=== PATIENT | male | born 1930 | race Caucasian/White ===

== ENCOUNTER 2016-07-29 17:42 | Inpatient (IN) ==
--- NOTE | 2016-07-29 17:54 | Emergency Department Note ---
Disposition Clinical Impression: Expressive aphasia CVA (cerebral vascular accident) Qualifiers: CVA mechanism: unspecified Qualified Code(s): I63.9 - Cerebral infarction, unspecified Disposition: Admitted As Inpatient Condition: Fair Time of Disposition: 18:56 Altered Mental Status HPI - General Chief Complaint: ED Altered Mental Status Stated Complaint: AMS/ Expressive aphasia Time Seen by Provider: 07/29/16 17:48 Source: EMS Mode of arrival: EMS Limitations: altered mental status Nursing Notes Reviewed: Yes Vital Signs Reviewed: Yes - History of Present Illness HPI Narrative: Patient is an 85-year-old male who presents to [facility] ED with a chief complaint of altered mental status and inability to talk. Per EMS , patient's last known well was this morning at breakfast. We are unsure what time this was. Nursing staff had checked on him around 2 PM this afternoon but did not note any abnormalities at that time. Family came to check on him this evening and noticed right away that he was unable to talk like he normally does. States he can be confused at times but then is always able to still talk. Patient is bed bound at baseline and resides at [facility]. MD complaint: altered mental status, confusion Onset (ago): unknown Consistency of Symptoms: constant Context: change in medication (increased zoloft last week) - Related Data Home Medications Medication Instructions Recorded Confirmed Amlodipine [Amlodipine Besylate] 10 mg PO DAILY 03/31/15 07/29/16 Carbidopa/Levodopa 25/100 [Sinemet] 1 each PO BID 03/31/15 07/29/16 Cholecalciferol (Vitamin D3) 1,000 unit PO BID 03/31/15 07/29/16 [Vitamin D] Finasteride [Proscar] 5 mg PO DAILY 03/31/15 07/29/16 Lactulose 20 gm PO QAM 03/31/15 07/29/16 Melatonin [Melatin] 3 mg PO HS 03/31/15 07/29/16 Memantine HCl [Namenda Xr] 7 mg PO DAILY 03/31/15 07/29/16 Metoprolol XL (24 HR) Succ [Toprol 50 mg PO DAILY 03/31/15 07/29/16 XL] Omeprazole [PriLOSEC] 20 mg PO DAILY 03/31/15 07/29/16 Probenecid [Benemid] 500 mg PO BID 03/31/15 07/29/16 Sertraline [Zoloft] 150 mg PO DAILY 03/31/15 07/29/16 Vitamin B Complex [B Complex] 1 each PO DAILY 03/31/15 07/29/16 Acetaminophen [Tylenol] 500 mg PO TID 07/29/16 07/29/16 Acetaminophen [Tylenol] 650 mg PO Q8H PRN 07/29/16 07/29/16 Bisacodyl [Dulcolax] 10 mg RC DAILY PRN 07/29/16 07/29/16 Furosemide [Lasix] 20 mg PO DAILY 07/29/16 07/29/16 LORazepam [Ativan] 1 mg PO BID PRN 07/29/16 07/29/16 Magnesium Hydroxide [Milk of 400 mg PO DAILY PRN 07/29/16 07/29/16 Magnesia] Nitroglycerin [Nitrostat] 0.4 mg SL Q5M PRN 07/29/16 07/29/16 Potassium Chloride [K-Tab ER] 20 meq PO DAILY 07/29/16 07/29/16 Sennosides [Senna] 8.6 mg PO BID 07/29/16 07/29/16 Allergies Allergy/AdvReac Type Severity Reaction Status Date / Time allopurinol Allergy See Verified 03/31/15 14:23 Comments Limitations: ROS unobtainable due to patients medical condition Past Medical History - Past Medical History Source: old records reviewed, obtained from family Medical history: Reports: dementia, hyperlipidemia, hypertension, renal disease Psychiatric history: Reports: depression - Social History Smoking Status: Unknown if ever smoked Smokeless Tobacco Status: No Alcohol use: Reports: none Drug use: Reports: none Physical Exam - General Limitations: altered mental status General appearance: alert - Head Head exam: atraumatic, normocephalic, normal inspection - Eye Eye exam: Present: normal appearance, PERRL, EOMI - ENT ENT exam: mucous membranes dry - Neck Neck exam: Present: normal inspection, full ROM, trachea midline - Chest Chest inspection: Present: normal inspection, symmetric chest wall rise - Cardiovascular Cardiovascular exam: Present: regular rate, normal rhythm, normal heart sounds - Abdominal Exam Abdominal exam: Present: soft, Non-Tender. Absent: distention, guarding, rebound, rigidity - Extremities Exam Extremities exam: Present: normal inspection, full ROM. Absent: tenderness, pedal edema - Neurological Exam Neurological exam: Present: alert. Absent: oriented X3 - Expanded Neurological Exam Speech: Present: expressive aphasia Cranial nerves: EOM function (II, III, IV, ): Normal, facial palsy (VII): Normal Motor strength - LUE: 4/5 Motor strength - RUE: 4/5 Motor strength - LLE: 0/5 Motor strength - RLE: 0/5 Coma Scale Eye Opening: Spontaneous Coma Scale Motor Response: Obeys Commands Coma Scale Verbal Response: Incomprehensible Coma Scale Total: 12 - Psychiatric Psychiatric exam: Present: normal affect, normal mood - Skin Skin exam: Present: warm, dry, intact, normal color Course Course Narrative: Patient seen and examined. Difficulty with speech today. At baseline, patient is nonambulatory. Patient able to follow some commands such as squeezing and releasing his hand as well as opening and closing his eyes. However he does not follow any other commands. He is trying to talk but is unable to make any comprehensible words. NIH score of 13. Unknown last well though it is thought to be this morning. Stroke alert was called. Critical care workup initiated. Pt is DNR CCA - Reevaluation(s) Reevaluation #1: Patient is somewhat hypertensive. However did improve from systolic to 10 down to 190. We will hold off on IV antihypertensive medication at this time. CT head negative for any acute abnormalities. I spoke with [facility] neurologists Dr. Ingram who feels patient is not a candidate for TPA. He will need admission however for stroke workup. We will page hospitalist for admission. Time: 18:27 Reevaluation #2: I spoke with hospitalist Dorinda Marc NP who has accepted patient for admission. Time: 18:52 Vital Signs Temperature 97.5 F L 07/29/16 17:46 Pulse Rate 61 07/29/16 17:46 Respiratory Rate 14 07/29/16 17:46 Blood Pressure 210/114 07/29/16 17:46 O2 Sat by Pulse Oximetry 96 07/29/16 17:46 Temperature 96.0 F L 07/29/16 23:29 Pulse Rate 60 07/29/16 23:29 Respiratory Rate 17 07/29/16 23:29 Blood Pressure 181/94 07/29/16 23:29 O2 Sat by Pulse Oximetry 93 07/29/16 23:29 Oxygen Delivery Oxygen Delivery Room Air Altered Mental Status - Medical Records Medical records reviewed: Yes I reviewed the patient's medical records. - Lab Data Lab results reviewed: Yes I reviewed the patient's lab results. Result diagrams: 07/29/16 18:04 07/29/16 18:04 Lab Results 07/29/16 07/29/16 07/29/16 Range/Units 17:47 18:04 18:04 WBC 7.6 (4.3-11.1) K/mcL RBC 5.15 (4.19-5.50) M/mcL Hgb 15.0 (12.9-16.9) g/dL Hct 46.2 (37.5-50.1) % MCV 89.7 (83.0-100.0) fL MCH 29.1 (28.0-33.3) pg MCHC 32.5 (31.6-35.5) g/dL RDW 15.3 H (11.5-14.5) % Plt Count 226 (140-400) K/mcL MPV 9.8 (9.4-12.4) fL Immature Gran % 0.3 (0-4) % Seg Neutrophils % 63.5 % Lymphocytes % 21.7 % Monocytes % 10.5 % Eosinophils % 3.5 % Basophils % 0.5 % Neutrophils # 4.8 (1.6-8.9) K/mcL Lymphocytes # 1.7 (0.6-4.6) K/mcL Monocytes # 0.8 (0.0-1.3) K/mcL Eosinophils # 0.3 (0.0-0.6) K/mcL Basophils # 0.0 (0.0-0.2) K/mcL PT 11.6 (9.4-12.1) Seconds INR 1.1 APTT 30.5 (26.0-36.0) Seconds Sodium (136-145) mEq/L Potassium (3.5-4.5) mEq/L Chloride (98-109) mEq/L Carbon Dioxide (19-29) mEq/L BUN (8-26) mg/dL Creatinine (0.72-1.25) mg/dL Est GFR ( Amer) (> 60) Est GFR (Non-Af Amer) (> 60) BUN/Creatinine Ratio (6-26) Glucose (70-99) mg/dL POC Glucose 89 (58-89) Calculated Osmolality (280-300) Calcium (8.6-10.8) mg/dL Troponin I (0-0.03) ng/mL 07/29/16 07/29/16 Range/Units 18:04 18:04 WBC (4.3-11.1) K/mcL RBC (4.19-5.50) M/mcL Hgb (12.9-16.9) g/dL Hct (37.5-50.1) % MCV (83.0-100.0) fL MCH (28.0-33.3) pg MCHC (31.6-35.5) g/dL RDW (11.5-14.5) % Plt Count (140-400) K/mcL MPV (9.4-12.4) fL Immature Gran % (0-4) % Seg Neutrophils % % Lymphocytes % % Monocytes % % Eosinophils % % Basophils % % Neutrophils # (1.6-8.9) K/mcL Lymphocytes # (0.6-4.6) K/mcL Monocytes # (0.0-1.3) K/mcL Eosinophils # (0.0-0.6) K/mcL Basophils # (0.0-0.2) K/mcL PT (9.4-12.1) Seconds INR APTT (26.0-36.0) Seconds Sodium 143 (136-145) mEq/L Potassium 3.7 (3.5-4.5) mEq/L Chloride 105 (98-109) mEq/L Carbon Dioxide 26 (19-29) mEq/L BUN 17 (8-26) mg/dL Creatinine 1.65 H (0.72-1.25) mg/dL Est GFR ( Amer) 48 L (> 60) Est GFR (Non-Af Amer) 40 L (> 60) BUN/Creatinine Ratio 10 (6-26) Glucose 102 H (70-99) mg/dL POC Glucose (58-89) Calculated Osmolality 298 (280-300) Calcium 10.2 (8.6-10.8) mg/dL Troponin I 0.03 (0-0.03) ng/mL - Radiology Data Radiology results reviewed: Yes I reviewed the patient's radiology results. Head CT 07/29/16 17:48 IMPRESSION: No evidence of intracranial hemorrhage or mass effect. Atrophy and severe white matter changes consistent chronic small vessel ischemic disease. This limits evaluation for subtle acute infarct. If clinically indicated, MRI may be helpful for further evaluation. Findings were discussed with Dr. Almeida at 6:17 pm on 07/29/2016. D/ / Barb Ellis MD / Barb Ellis MD Interpreting Provider: Barb Ellis MD Chest X-Ray 07/29/16 18:01 IMPRESSION: No acute process. D/ / Mac Shepherd MD / Mac Shepherd MD Interpreting Provider: Mac Shepherd MD - EKG Data EKG attestation: Yes I reviewed and interpreted this EKG. EKG results narrative: EKG done at 1748 shows ventricular paced rhythm with a rate of 67 bpm. No acute abnormalities. Attestation Statement - Attestation Attestation: I, Nj Solorzano, examined this patient and my medical decision-making was reviewed with the LEDGE MAN/PA/Advanced Practice Nurse/Resident Physician. I agree with the documented findings, disposition and treatment plan as described except to the extent set forth below. 85-year-old male brought in by EMS with concerns of possible CVA. Family states the patient was last seen normal at breakfast this morning. Patient is now unable to have a conversation and has difficulty following simple commands which is a significant change from his baseline. Time of onset is unclear however nursing staff at nursing facility states a nurse was in his room around 2 PM and did not notice obvious deficits. Stroke protocol was initiated. CT of the head was negative. Patient was evaluated by [facility] neurologists there was not a candidate for TPA. Patient will be admitted to the hospital for further care and evaluation.
[2016-07-29] MEDS ORDERED: *HR* Labetalol 20 MG/4 ML SYRINGE IVP ONE (18:02)
[2016-07-29 18:09] LABS: Basophils % 0.5 %; Eosinophils # 0.3 K/mcL (0.0-0.6); Eosinophils % 3.5 %; Hematocrit 46.2 % (37.5-50.1); Immature Granulocytes % 0.3 % (0-4); Lymphocytes # 1.7 K/mcL (0.6-4.6); Lymphocytes % 21.7 %; Mean Corpuscular HGB Conc 32.5 g/dL (31.6-35.5); Mean Corpuscular Hemoglobin 29.1 pg (28.0-33.3); Mean Corpuscular Volume 89.7 fL (83.0-100.0); Mean Platelet Volume 9.8 fL (9.4-12.4); Monocytes # 0.8 K/mcL (0.0-1.3); Monocytes % 10.5 %; Neutrophils # 4.8 K/mcL (1.6-8.9); Platelet Count 226 K/mcL (140-400); Red Blood Count 5.15 M/mcL (4.19-5.50); Red Cell Distribution Width 15.3 % (11.5-14.5); Segmented Neutrophils % 63.5 %
[2016-07-29 18:16] LABS: INR 1.1; Prothrombin Time 11.6 Seconds (9.4-12.1)
[2016-07-29 18:18] LABS: Activated Partial Thrombo Time 30.5 Seconds (26.0-36.0)
[2016-07-29 18:20] LABS: Calcium 10.2 mg/dL (8.6-10.8); Potassium 3.7 mEq/L (3.5-4.5)
[2016-07-29] MEDS ORDERED: Naloxone 0.4 MG/ML INJ IVP PRN (21:51)
--- NOTE | 2016-07-29 23:07 | Internal Med History&Physical ---
Date of Encounter: 07/29/16 Time of Encounter: 22:57 Assessment and Plan (1) Expressive aphasia Current visit: Yes Status: Acute 1 patient presented with expressive aphasia-CT of head was negative -patient did not pass bedside swallowing evaluation. We will consult speech therapy 2 patient's nothing by mouth 3 aspiration precautions (2) CVA (cerebral vascular accident) Current visit: Yes Status: Acute 1 patient presented with onset of expressive aphasia. Last known well approximately 8 AM this morning, [facility] neurology consult and patient outside the window of TPA. CT of head negative for any intracranial abnormalities. Unable to perform MRI due to pacemaker. Recheck CAT scan after 24 hours 2 consult neurology 3 patient nothing by mouth with aspiration precautions consult speech therapy 4 consult PTOT 5 obtain cardiac echo 6 obtain carotid Dopplers 7 lipid profile 8 aspirin rectal Qualifiers: CVA mechanism: unspecified Qualified Code(s): I63.9 - Cerebral infarction, unspecified (3) CKD (chronic kidney disease) stage 3, GFR 30-59 ml/min Current visit: Yes Status: Acute 1 creatinine 1.65 baseline is 1.3-1.4. We will continue to monitor creatinine 2 avoid nephrotoxins 3 Gentle IV hydration 4 monitor intake and output daily weights (4) HTN (hypertension) Current visit: Yes Status: Acute 1 patient presented hypertensive emergency with systolic blood pressure 200 100. Slowly resolved. Presently systolic is 160. Goal is to maintain systolic around 160- 170 Qualifiers: Hypertension type: essential hypertension Qualified Code(s): I10 - Essential (primary) hypertension (5) Parkinson disease Current visit: Yes Status: Acute 1 presently patient is nothing by mouth we will resume medications once cleared by speech therapy. We will hold home medications for now (6) DVT prophylaxis Current visit: Yes Status: Acute Heparin Internal Medicine - H&P: HPI Chief complaint: AMS Admitted From: Emergency Dept Plans for Post Hospital Care: Transfer Care Home Facility History of present illness: Mr. Albarran is a 85 year old male past history of CK D 3 mentioned hypertension and CAD with stent Parkinson. Patient to obtain medical records and nursing staff due to patient's mental state. According to nursing staff patient resides at [facility] approximately 1 month ago he was residing in assisted living. However due to increasing dementia she is transferred to long-term area. According to nursing staff at the facility patient's last name as well as approximately 8 AM at breakfast. Nursing staff checked on him around 2 PM this afternoon but did not notice any abnormalities at that time. Family came in to check on him in the evening and noticed that he was unable to talk which was unusual for him. Patient notably is confused at times however he was able to always speak. Patient was transferred to the ER for further workup evaluation. ER records patient was attempted to talk but was unable to make comprehensible words NIH was 13. Patient was hypertensive upon presentation with a systolic of 210/[address] of head was negative for any acute abnormalities the did speak with with you neurologist who feels patient is not candidate for TPA however will need admission for further stroke workup. Patient was given rectal aspirin. ER document indicates patient is a DNR CCA. Upon assessment patient is a phasic is able to grasp hands equally, patient pulled with feet equally, however he does close his eyes and looks away when asked to perform any other commands. He is hemodynamically stable. I reviewed this case with who agrees with plan. Past Med Surg Social Fam HX - Past Medical History Medical history: dementia, hyperlipidemia, hypertension, renal disease Psychiatric history: depression - Social History Smoking Status: Unknown if ever smoked Smokeless Tobacco Status: No Alcohol use: none Drug use: none Internal Medicine - H&P: Meds Amlodipine [Amlodipine Besylate] 10 mg PO DAILY 03/31/15 [History] Carbidopa/Levodopa 25/100 [Sinemet] 1 each PO BID 03/31/15 [History] Cholecalciferol (Vitamin D3) [Vitamin D] 1,000 unit PO BID 03/31/15 [History] Finasteride [Proscar] 5 mg PO DAILY 03/31/15 [History] Lactulose 20 gm PO QAM 03/31/15 [History] Melatonin [Melatin] 3 mg PO HS 03/31/15 [History] Memantine HCl [Namenda Xr] 7 mg PO DAILY 03/31/15 [History] Metoprolol XL (24 HR) Succ [Toprol XL] 50 mg PO DAILY 03/31/15 [History] Omeprazole [PriLOSEC] 20 mg PO DAILY 03/31/15 [History] Probenecid [Benemid] 500 mg PO BID 03/31/15 [History] Sertraline [Zoloft] 150 mg PO DAILY 03/31/15 [History] Vitamin B Complex [B Complex] 1 each PO DAILY 03/31/15 [History] Acetaminophen [Tylenol] 500 mg PO TID 07/29/16 [History] Acetaminophen [Tylenol] 650 mg PO Q8H PRN 07/29/16 [History] Bisacodyl [Dulcolax] 10 mg RC DAILY PRN 07/29/16 [History] Furosemide [Lasix] 20 mg PO DAILY 07/29/16 [History] LORazepam [Ativan] 1 mg PO BID PRN 07/29/16 [History] Magnesium Hydroxide [Milk of Magnesia] 400 mg PO DAILY PRN 07/29/16 [History] Nitroglycerin [Nitrostat] 0.4 mg SL Q5M PRN 07/29/16 [History] Potassium Chloride [K-Tab ER] 20 meq PO DAILY 07/29/16 [History] Sennosides [Senna] 8.6 mg PO BID 07/29/16 [History] Allergies allopurinol Allergy (Verified 03/31/15 14:23) See Comments ROS unobtainable: due to mental status All Systems PM: A 10-system review of systems was performed and is negative for pertinent findings except as documented above in the HPI. - Constitutional Vitals: Temp Pulse Resp BP Pulse Ox 96.7 F L 62 17 162/87 95 07/29/16 20:24 07/29/16 20:24 07/29/16 20:24 07/29/16 20:24 07/29/16 20:24 General appearance: Present: A&O X 0 - Head Head exam: Present: atraumatic, normocephalic - Eye Eye exam: Present: EOMI, PERRL, conjuntiva pink, sclera anicteric Pupils: Present: PERRL - Respiratory Respiratory exam: Present: CTAB. Absent: accessory muscle use, rales, rhonchi, wheezes - Cardiovascular Cardiovascular exam: Present: RRR, +S1, +S2. Absent: diastolic murmur, gallop, rubs, systolic murmur - GI/Abdominal GI/Abdominal exam: Present: normal bowel sounds, soft, no peritoneal signs. Absent: distended, tenderness - Extremities Exam Extremities exam: Present: warm, radial pulses palpable and symetrical. Absent : calf tenderness, cyanotic, pedal edema - Neurological Exam Neurological exam: Present: alert, speech deficit. Absent: pronater drift, facial droop - Expanded Neurological Exam Speech: Present: expressive aphasia Coma Scale Eye Opening: Spontaneous Coma Scale Motor Response: Obeys Commands Coma Scale Verbal Response: None Coma Scale Total: 11 - Skin Skin exam: Present: dry, intact Internal Med - H&P Results - Labs CBC & Chem 7: 07/29/16 18:04 07/29/16 18:04 - Diagnostic Studies Other Images Additional comments: Head CT 07/29/16 17:48 IMPRESSION: No evidence of intracranial hemorrhage or mass effect. Atrophy and severe white matter changes consistent chronic small vessel ischemic disease. This limits evaluation for subtle acute infarct. If clinically indicated, MRI may be helpful for further evaluation. Findings were discussed with Dr. Almeida at 6:17 pm on 07/29/2016. D/ / Barb Ellis MD / Barb Ellis MD Interpreting Provider: Barb Ellis MD Chest X-Ray 07/29/16 18:01 IMPRESSION: No acute process. D/ / Mac Shepherd MD / Mac Shepherd MD Interpreting Provider: Mac Shepherd MD
[2016-07-29] MEDS ORDERED: 0.9 % Sodium Chloride 1,000 ML IVC SCH (23:30)
[2016-07-30 02:12] LABS: Basophils # 0.1 K/mcL (0.0-0.2); Basophils % 0.5 %; Eosinophils # 0.2 K/mcL (0.0-0.6); Eosinophils % 2.3 %; Hematocrit 40.8 % (37.5-50.1); Hemoglobin 13.7 g/dL (12.9-16.9); Immature Granulocytes % 0.4 % (0-4); Lymphocytes # 1.7 K/mcL (0.6-4.6); Mean Corpuscular HGB Conc 33.6 g/dL (31.6-35.5); Mean Corpuscular Hemoglobin 29.5 pg (28.0-33.3); Mean Corpuscular Volume 87.9 fL (83.0-100.0); Mean Platelet Volume 10.6 fL (9.4-12.4); Monocytes % 10.4 %; Neutrophils # 6.4 K/mcL (1.6-8.9); Platelet Count 177 K/mcL (140-400); Red Blood Count 4.64 M/mcL (4.19-5.50); Red Cell Distribution Width 15.1 % (11.5-14.5); Segmented Neutrophils % 68.4 %
[2016-07-30 02:26] LABS: Calcium 9.3 mg/dL (8.6-10.8); Chol/HDL Ratio 3.9 (0-4.9); Potassium 3.7 mEq/L (3.5-4.5)
[2016-07-30] MEDS ORDERED: *HR* LORazepam 1 MG TABLET PO PRN (08:35)
[2016-07-30] MEDS ORDERED: MOM Conc 10 ML UD.LIQ PO PRN (08:35)
--- NOTE | 2016-07-30 08:44 | Internal Med Progress Note ---
Date of Encounter: 07/30/16 Time of Encounter: 08:40 - Assessment and plan (1) CVA (cerebral vascular accident) Current Visit: Yes Status: Acute Assessment and plan: admitted for expressive aphasia from [place] CT Head : no new infarct or bleed. ECHO: Pending. Carotid doppler : Pending. has advanced dementia and NH resident. plan: complete the work up no major invasive procedures. likely back to [facility] Qualifiers: CVA mechanism: unspecified Qualified Code(s): I63.9 - Cerebral infarction, unspecified (2) HTN (hypertension) Current Visit: Yes Status: Acute Assessment and plan: will keep above 170 in view of new aphasia, possible infarct Unable to get MRI due to pacemaker. Qualifiers: Hypertension type: essential hypertension Qualified Code(s): I10 - Essential (primary) hypertension (3) Parkinson disease Current Visit: Yes Status: Acute Assessment and plan: resume home meds. (4) CKD (chronic kidney disease) stage 3, GFR 30-59 ml/min Current Visit: Yes Status: Acute Assessment and plan: no NSAIDs close monitoring labs in AM (5) Expressive aphasia Current Visit: Yes Status: Acute Assessment and plan: likely CVA Will repeat CT head tomorrow. (6) DVT prophylaxis Current Visit: Yes Status: Acute Assessment and plan: heparin Medical Decision Making : In spite of appropriate meds still has risk of worsening as he has advanced age and multiple comorbidities. - Subjective Interval history: seen and examined. patient is not communicating does not appeared to be in stress. examined him at ECHO room. - Constitutional Vitals: Temp Pulse Resp BP Pulse Ox 97.6 F 61 16 187/91 97 07/30/16 06:53 07/30/16 06:53 07/30/16 06:53 07/30/16 06:53 07/30/16 06:53 General appearance: Present: A&O X 0 - Head Head exam: Present: atraumatic, normocephalic - Eye Eye exam: Present: PERRL, conjuntiva pink, sclera anicteric Pupils: Present: PERRL - Neck Neck exam general surgery: Present: supple, trachea midline. Absent: lymphadenopathy - Respiratory Respiratory exam: Present: CTAB. Absent: accessory muscle use, rales, rhonchi, wheezes - Cardiovascular Cardiovascular exam: Present: RRR, +S1, +S2. Absent: diastolic murmur, gallop, rubs, systolic murmur - GI/Abdominal GI/Abdominal exam: Present: normal bowel sounds, soft, no peritoneal signs. Absent: distended, tenderness - Extremities Exam Extremities exam: Present: warm, radial pulses palpable and symetrical. Absent : calf tenderness, cyanotic, pedal edema - Neurological Exam Neurological exam: Present: CN II-XII intact, oriented X3, no focal deficits. Absent: pronater drift, facial droop, speech deficit - Skin Skin exam: Present: dry, intact Internal Medicine: Result - Labs CBC & Chem 7: 07/30/16 02:02 07/30/16 02:02 Labs: Short CBC 07/30/16 Range/Units 02:02 WBC 9.4 (4.3-11.1) K/mcL Hgb 13.7 (12.9-16.9) g/dL Hct 40.8 (37.5-50.1) % Plt Count 177 (140-400) K/mcL Neutrophils # 6.4 (1.6-8.9) K/mcL BMP 07/30/16 02:02 Sodium 143 Potassium 3.7 Chloride 108 Carbon Dioxide 24 BUN 20 Creatinine 1.42 H Glucose 105 H Calcium 9.3 Cardiac Enzymes 07/30/16 07/30/16 Range/Units 02:02 05:56 Troponin I 0.04 H* 0.04 H* (0-0.03) ng/mL - ABG Interpretation ABG results: PT/INR, D-dimer PT 11.6 Seconds (9.4-12.1) 07/29/16 18:04 Consult Discharge Plan - Plan Instructions: Parkinson's Disease (DC), Parkinson's Disease (GEN), Ischemic Stroke (DC), Ischemic Stroke (GEN), Chronic Hypertension (DC) Referrals: Michel Stevens [Primary Care Provider] -
[2016-07-30] MEDS ORDERED: Perflutren Lipid Microsphere 1.3 ML in 0.9 % Sodium Chloride 8.7 ML IVP ONE (08:50)
[2016-07-30] MEDS: *HR* Heparin 5,000 UNIT/ML VIAL SQ SCH ×2 (10:55→17:28)
[2016-07-30] MEDS ORDERED: Bisacodyl 10 MG RECTAL SUPPOSITORY RC PRN (11:00)
[2016-07-30] MEDS ORDERED: Nitroglycerin 0.4 MG TAB.SUBL SL PRN (11:03)
--- NOTE | 2016-07-30 11:26 | ECHO - Doppler Report ---
Echo with Saline and Imaging Enhancement Agent Name: Ryder Albarran Date of Study: 07/30/2016 Date: 1930 Ht: 73.0 in Medical Record#: [id number] Age: 85 Wt: 188.0 lb Gender: Male BSA: 2.1 Order #: [id number] Location: [facility] Room #: 2NE17 Reading Physician: Kennedi Phelps DO Ceramic Chemist: Ochoa Celaya RN Ordering Physician: Wendy Jackson CNP Primary Physician: Michel Stevens MD Indications: Cerebrovascular Accident Impressions: LV systolic function appears low normal with use of Definity. Moderate increase in LV wall thickness. Atypical septal motion consistent with paced rhythm. Normal right ventricular size and function. Borderline evidence for mild pulmonary hypertension. No evidence for PFO with saline contrast, although images may be suboptimal. Left Ventricular Wall Motion: Rest Echo Findings The mid inferior lateral and basal inferior lateral wilder were not visualized. All other wall segments showed normal motion. Findings: Study Quality * Technically challenging with suboptimal windows. ECG Findings * Paced rhythm. Left Ventricle * Indeterminate diastolic function. * Low normal LV systolic function when visualized with use of Definity. * Atypical septal motion consistent with paced rhythm. * Moderate increase in LV wall thickness. Aorta * Normally sized aortic root. Mitral Valve * Normal mitral valve structure. * No mitral stenosis. * No mitral regurgitation. Aortic Valve * Aortic valve not well visualized. * Discrepant Doppler findings for the presence of aortic stenosis. * Trace aortic regurgitation. Tricuspid Valve * Tricuspid valve not well visualized. * Trace tricuspid regurgitation. * Estimated RA pressure is 3 mmHg. * Estimated RVSP is 35 mmHg. * Borderline mild pulmonary hypertension. Pulmonic Valve * Pulmonic valve is not well visualized. * No pulmonic stenosis. * No pulmonic regurgitation. Pulmonary Artery * Pulmonary artery not well visualized. Right Atrium * Normal right atrial size. Left Atrium * Severely dilated left atrium. IVC * The IVC is not dilated. Pericardium * There is no pericardial effusion present. Interatrial Septum * There does not appear to be a PFO present with saline injection. However, image quality may be suboptimal for visualization. Right Ventricle * Normal right ventricular structure and function. History 07/03/2014 a Previous Echo was performed. Contrast: Agitated saline 20 ml. Definity 1.3 ml in 8.7 ml of saline 2 ml. Measurements: BP: 187/ 91 2D Normal Values IVSd: 1.40 cm 0.6 - 1.0 cm LVIDd: 4.90 cm 3.7 - 5.6 cm LVPWd: 1.40 cm 0.6 - 1.1 cm LVIDs: 3.50 cm 1.5 - 3.6 cm %FS: 28.60 cm >25 % LVOT Diam: 2.10 cm LA volume: Mitral Valve Peak E:.40 m/sec Peak A:.82 m/sec E/A Ratio:0.5 Peak E' Lat Conrado:4.58 cm/s Peak E' Med Conrado:4.19 cm/s E/E' Lat Ratio:8.6 E/E' Med Ratio:9.4 LVOT Peak Conrado:.79 m/sec Mean Conrado:.51 m/sec Peak Grad:2.00 mmHg Mean Grad:1.00 mmHg Aortic Valve Peak Conrado:2.73 m/sec Mean Conrado:1.76 m/sec Peak Grad:30.00 mmHg Mean Grad:15.00 mmHg Valve Area:1.16 cm2 Tricuspid Valve TV Regurg Peak Grad: 32.00mmHg TV Regurg Peak Conrado: 2.81m/sec Updated by Kennedi Phelps on 07/30/2016 11:12:56 AM electronically signed on 07/30/2016 11:20:08 AM with status of Final Wall Motion [place]: 1=Normal, 2=Hypokinesis, 3=Akinesis, 4=Dyskinesis, 5=Aneurysmal, 6=Hyperkinetic, X=Not Visualized (Blank)=Missing
[2016-07-30] MEDS: Finasteride 5 MG TABLET PO SCH (12:22)
[2016-07-30] MEDS: Furosemide 20 MG TABLET PO SCH (12:22)
[2016-07-30] MEDS: Aspirin Enteric Coated 81 MG Tablet PO SCH (12:22)
[2016-07-30] MEDS: Carbidopa/Levodopa 25/100 TABLET PO SCH ×2 (12:23→21:55)
[2016-07-30] MEDS: Metoprolol XL (24 HR) Succ 50 MG TAB.ER.24H PO SCH (12:23)
[2016-07-30] MEDS: amLODIPine 5 MG TABLET PO SCH (12:23)
[2016-07-30] MEDS: Sennosides 8.6 MG TABLET PO SCH ×2 (12:23→21:55)
--- NOTE | 2016-07-30 12:27 | Neurology - Consult Note ---
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 No focal deficits seen. Does have Parkinson features and history of dementia. Speech difficulty is quite obvious and major concern would be small infarct involving the speech cortex. Certainly needs MRI of brain with DW images, complete echo, carotid artery duplex. Is already on aspirin and Plavix now Continue statin therapy. Will review MRI of brain once available. Will decide whether patient needs CORRIE if embolic appearing. History of Present Illness Chief complaint: speech difficulty and inability to walk HPI: Mr. Albarran is a 85 year old male with PMH significant for dementia, CKD, pacemaker, HTN, CAD, Parkinson's disease, who developed acute of altered mental status, mainly speech difficulty and inability to walk. Does carry a diagnosis of Parkinson's disease and dementia. This morning, the patient was found to have speech difficulty, almost like receptive aphasia and answer questions incorrectly or not making any sense. Does not appear to be any significant discomforts but unable to walk. No focal weakness. is able to eat. CT of head showed no acute intracranial abnormality. Past Med Surg Social Fam HX - Past Medical History Medical history: dementia, hyperlipidemia, hypertension, renal disease Psychiatric history: depression - Past Surgical History Surgical History: AICD - Social History Smoking Status: Unknown if ever smoked Smokeless Tobacco Status: No Alcohol use: none Drug use: none Medications and Allergies Amlodipine [Amlodipine Besylate] 10 mg PO DAILY 03/31/15 [History] Carbidopa/Levodopa 25/100 [Sinemet] 1 each PO BID 03/31/15 [History] Cholecalciferol (Vitamin D3) [Vitamin D] 1,000 unit PO BID 03/31/15 [History] Finasteride [Proscar] 5 mg PO DAILY 03/31/15 [History] Lactulose 20 gm PO QAM 03/31/15 [History] Melatonin [Melatin] 3 mg PO HS 03/31/15 [History] Memantine HCl [Namenda Xr] 7 mg PO DAILY 03/31/15 [History] Metoprolol XL (24 HR) Succ [Toprol XL] 50 mg PO DAILY 03/31/15 [History] Omeprazole [PriLOSEC] 20 mg PO DAILY 03/31/15 [History] Probenecid [Benemid] 500 mg PO BID 03/31/15 [History] Sertraline [Zoloft] 150 mg PO DAILY 03/31/15 [History] Vitamin B Complex [B Complex] 1 each PO DAILY 03/31/15 [History] Acetaminophen [Tylenol] 500 mg PO TID 07/29/16 [History] Acetaminophen [Tylenol] 650 mg PO Q8H PRN 07/29/16 [History] Bisacodyl [Dulcolax] 10 mg RC DAILY PRN 07/29/16 [History] Furosemide [Lasix] 20 mg PO DAILY 07/29/16 [History] LORazepam [Ativan] 1 mg PO BID PRN 07/29/16 [History] Magnesium Hydroxide [Milk of Magnesia] 400 mg PO DAILY PRN 07/29/16 [History] Nitroglycerin [Nitrostat] 0.4 mg SL Q5M PRN 07/29/16 [History] Potassium Chloride [K-Tab ER] 20 meq PO DAILY 07/29/16 [History] Sennosides [Senna] 8.6 mg PO BID 07/29/16 [History] Allergies allopurinol Allergy (Verified 03/31/15 14:23) See Comments All Systems: A 10-system review of systems was performed and is negative for pertinent findings except as documented above in the HPI. Physical Examination - Vital Signs Vital Signs: Initial Vital Signs Temp Pulse Resp BP Pulse Ox 97.5 F L 61 14 210/114 96 07/29/16 17:46 07/29/16 17:46 07/29/16 17:46 07/29/16 17:46 07/29/16 17:46 - Constitutional General appearance: comfortable - Neurologic Sensorimotor examination: other (Unable to assess due to aphasia) Detailed motor examination: grossly full strength in all extremities (No focal weakness seen. Patient does not follow commands. Able to hold legs up in the air when let drop) Motor examination - right side: 4/5: hip flexors, 5/5: deltoids, biceps, triceps , wrist flexion, wrist extension, tax compliance officer Motor examination - left side: 4/5: quadriceps, 5/5: deltoids, biceps, triceps, wrist flexion, wrist extension, hip flexors, tax compliance officer Detailed sensory examination: other (Grossly intact) Posture: other (None) Reflex and gait examination: other (Patient has muscle rigidity especially at the arms bilaterally. No tremors seen.) Mental Status Examination: awake, alert, opens eyes to voice, makes eye contact , receptive aphasia, demented, impaired cognition Cranial nerve examination: PERRL, EOMI (appears full but difficul to assess), visual sotomayor intact (unable to assess), corneal reflexes brisk symmetrically, no facial asymmetry is present, hearing is intact symmetrically (unable to assess) Results - Laboratory Findings CBC and BMP: 07/30/16 02:02 07/30/16 02:02 Abnormal lab findings: Abnormal lab results RDW 15.1 % (11.5-14.5) H 07/30/16 02:02 Creatinine 1.42 mg/dL (0.72-1.25) H 07/30/16 02:02 Est GFR ( Amer) 57 (> 60) L 07/30/16 02:02 Est GFR (Non-Af Amer) 47 (> 60) L 07/30/16 02:02 Glucose 105 mg/dL (70-99) H 07/30/16 02:02 Troponin I 0.04 ng/mL (0-0.03) H* 07/30/16 05:56 Triglycerides 162 mg/dL (< 150) H 07/30/16 02:02 VLDL Cholesterol, Calc 32 mg/dL (< 31) H 07/30/16 02:02 Consult Discharge Plan - Plan Instructions: Parkinson's Disease (DC), Parkinson's Disease (GEN), Ischemic Stroke (DC), Ischemic Stroke (GEN), Chronic Hypertension (DC) Referrals: Michel Stevens [Primary Care Provider] -
[2016-07-30] MEDS: NAMENDA 7 MG PO SCH (12:34)
--- NOTE | 2016-07-30 17:53 | Electrocardiograph Report ---
[place] [id number] Test Date: 2016-07-29 Pat Name: Ryder Albarran Department: 103 Room: 2NE17 Gender: M Gelatin Powder Mixer: : 1930 Requested By: Wendy Jackson Order Number: [id number] Reading MD: Davi Escoto MD Measurements Intervals [place] Rate: 67 P: 23 OR: 191 QRS: 264 QRSD: 165 T: 90 QT: 449 QTc: 464 Interpretive Statements ELECTRONIC VENTRICULAR PACEMAKER Electronically Signed On 07-30-2016 17:51:39 EDT by Davi Escoto MD
[2016-07-30] MEDS: Melatonin 3 MG TABLET PO SCH (21:55)
[2016-07-31 03:27] LABS: Bilirubin,Urine Negative (Negative); Blood,Urine Negative (Negative); Clarity,Urine Clear (Clear); Color,Urine Yellow (Yellow); Glucose,Urine (UA) Normal (Normal); Ketones,Urine Negative (Negative); Leukocyte Esterase,Urine Negative (Negative); Nitrite,Urine Negative (Negative); Protein,Urine >=300 mg/dL (Neg-Trace); Specific Gravity,Urine 1.028 (1.010-1.025); Urobilinogen,Urine Normal (Normal)
[2016-07-31 03:29] LABS: Bacteria,Urine None Seen per hpf (None-Few); Hyaline Casts,Urine None Seen per lpf (None-Few); Squamous Epithelial Cell,Urine Many per lpf (None-Few); WBC,Urine 0-3 per hpf (0-3)
[2016-07-31] MEDS: *HR* Heparin 5,000 UNIT/ML VIAL SQ SCH ×2 (05:24→17:37)
--- NOTE | 2016-07-31 10:42 | Neurology Progress Note ---
Date of Encounter: 07/31/16 Time of Encounter: 10:39 Assessment and Plan (1) Expressive aphasia Current Visit: Yes Status: Acute No change in clinical status from yesterday regarding expressive aphasia, but he is following some commands appropriately Unfortunately he cannot get an MRI due to pacemaker, so we will re-evaluate with another head CT wo contrast Echo showed low EF with definity and carotid demonstrated bilateral non- stenotic plaque Continue medical management with ASA and Statin Holding off on CORRIE for now Subjective Principal diagnosis: aphasia Interval history: Pt seen and examined. He is unable to answer questions due to his persistent aphasia but he is able to follow commands and nods so simple yes/no questions. There is no family at bedside and nurse is unavailable at this moment. Objective - Constitutional Vitals: Temp Pulse Resp BP Pulse Ox 97.7 F 60 18 179/96 96 07/31/16 07:47 07/31/16 07:47 07/31/16 07:47 07/31/16 07:47 07/31/16 07:47 General appearance: Present: cooperative (but unable to verbalize) - Head Head exam: Present: atraumatic, normocephalic - Eye Eye exam: Present: PERRL, conjuntiva pink, sclera anicteric - Extremities Exam Extremities exam: Present: warm, radial pulses palpable and symetrical. Absent : calf tenderness, cyanotic, pedal edema - Neurological Exam Sensorimotor examination: Present: other (Unable to assess due to aphasia) Motor Examination: Present: other (unable to assess motor strength as patient did not follow commands to move extremities) Motor examination - right side: 5/5: hall supervisor Motor examination - left side: 5/5: hall supervisor Sensation intact: Present: other (Grossly intact) Posture: Present: other (None) Reflex and gait examination: other (Patient has muscle rigidity especially at the arms bilaterally. No tremors seen.) Mental Status Examination: Present: awake, alert, follows commands appropriately (does squeeze fingers and wiggle toes when asked), opens eyes to voice, makes eye contact, answers questions by nodding yes or no, expressive aphasia, impaired cognition Cranial nerve examination: Present: PERRL, visual sotomayor intact (unable to assess), corneal reflexes brisk symmetrically, no facial asymmetry is present, hearing is intact symmetrically (unable to assess) Results - Laboratory Findings CBC and BMP: 07/30/16 02:02 07/30/16 02:02 Abnormal lab findings: Abnormal lab results RDW 15.1 % (11.5-14.5) H 07/30/16 02:02 Creatinine 1.42 mg/dL (0.72-1.25) H 07/30/16 02:02 Est GFR ( Amer) 57 (> 60) L 07/30/16 02:02 Est GFR (Non-Af Amer) 47 (> 60) L 07/30/16 02:02 Glucose 105 mg/dL (70-99) H 07/30/16 02:02 POC Glucose 129 (58-89) H 07/30/16 20:35 Troponin I 0.04 ng/mL (0-0.03) H* 07/30/16 05:56 Triglycerides 162 mg/dL (< 150) H 07/30/16 02:02 VLDL Cholesterol, Calc 32 mg/dL (< 31) H 07/30/16 02:02 Ur Specific [place] 1.028 (1.010-1.025) H 07/31/16 03:00 Urine Protein >=300 mg/dL (Neg-Trace) H 07/31/16 03:00 Urine Microscopic RBC 5-15 per hpf (0-3) H 07/31/16 03:00 Ur Squamous Epith Cells Many per lpf (None-Few) H 07/31/16 03:00 Consult Discharge Plan - Plan Instructions: Parkinson's Disease (DC), Parkinson's Disease (GEN), Ischemic Stroke (DC), Ischemic Stroke (GEN), Chronic Hypertension (DC) Referrals: Michel Stevens [Primary Care Provider] -
[2016-07-31] MEDS: Sennosides 8.6 MG TABLET PO SCH ×2 (10:52→21:35)
[2016-07-31] MEDS: Finasteride 5 MG TABLET PO SCH (10:52)
[2016-07-31] MEDS: Furosemide 20 MG TABLET PO SCH (10:52)
[2016-07-31] MEDS: Metoprolol XL (24 HR) Succ 50 MG TAB.ER.24H PO SCH (10:52)
[2016-07-31] MEDS: Aspirin Enteric Coated 81 MG Tablet PO SCH (10:53)
[2016-07-31] MEDS: amLODIPine 5 MG TABLET PO SCH (10:53)
[2016-07-31] MEDS: Carbidopa/Levodopa 25/100 TABLET PO SCH ×2 (10:58→21:35)
[2016-07-31] MEDS: NAMENDA 7 MG PO SCH (11:02)
--- NOTE | 2016-07-31 11:55 | Carotid Imaging Report ---
Carotid Duplex Patient Name:Ryder Albarran Gene Order Number:[id number] Procedure Date:07/30/2016 Date:1930Age:85 yrs Gender:Male Rt.BP:187 / 91 mmHgHeart Rate: Location:[facility] Room #: 2NE17 Typing Bookkeeper:Ochoa Celaya RN Referring MD:Wendy Jackson TYPING BOOKKEEPER foreign policy officer:Michel Stevens MD Reading MD:Cliff Jackson MD , FACS Primary Indications:Stroke Symptoms Risk Factors Yes/No Hypertension Unknown Diabetes Unknown Hypercholesterolemia Unknown Smoking Current Unknown Hx of TIA Unknown Hx of CVA Unknown Anticoagulants Unknown Hx of CAD/PTCA Unknown Previous Vascular Surgery Unknown Impressions: Findings: Bilateral carotid system has nonstenotic plaque. Recommendations: Test completed on 07/30/2016 at 9:45:00 am. Findings Carotid Duplex: Right: The right proximal common carotid artery has a PSV of 41 cm/s and a EDV of 9 cm/s. The right mid common carotid artery has a PSV of 49 cm/s and a EDV of 10 cm/s. The right distal common carotid artery has a PSV of 52 cm/s and a EDV of 12 cm/s. There is nonstenotic plaque in the right bifurcation with a PSV of 38 cm/s and a EDV of 8 cm/s. There is smooth homogeneous plaque. There is nonstenotic plaque in the right proximal internal carotid artery with a PSV of 49 cm/s and a EDV of 11 cm/s. There is smooth homogeneous plaque. The right mid internal carotid artery has a PSV of 43 cm/s and a EDV of 11 cm/s. The right distal internal carotid artery has a PSV of 43 cm/s and a EDV of 7 cm/s. The right eca has a PSV of 107 cm/s and a EDV of 11 cm/s. The right vertebral artery has a PSV of 39 cm/s and a EDV of 9 cm/s. Left: The left proximal common carotid artery has a PSV of 58 cm/s and a EDV of 8 cm/s. The left mid common carotid artery has a PSV of 48 cm/s and a EDV of 11 cm/s. The left distal common carotid artery has a PSV of 51 cm/s and a EDV of 9 cm/s. There is nonstenotic plaque in the left bifurcation with a PSV of 40 cm/s and a EDV of 8 cm/s. There is smooth homogeneous plaque. The left proximal internal carotid artery has a PSV of 27 cm/s and a EDV of 6 cm/s. The left mid internal carotid artery has a PSV of 66 cm/s and a EDV of 12 cm/s. The left distal internal carotid artery has a PSV of 53 cm/s and a EDV of 11 cm/s. The left eca has a PSV of 78 cm/s and a EDV of 9 cm/s. The left vertebral artery has a PSV of 33 cm/s and a EDV of 6 cm/s. Prior Study: No significant change compared to prior study dated: 12/03/2013. Carotid Results Right PSV EDV Assessment Proximal CCA 41 9 Normal Mid CCA 49 10 Normal Distal CCA 52 12 Normal Bifurcation 38 8 Non Stenotic Plaque Proximal ICA 49 11 Non Stenotic Plaque Mid ICA 43 11 Normal Distal ICA 43 7 Normal ECA 107 11 Normal Vertebral Artery 39 9 Normal Left PSV EDV Assessment Proximal CCA 58 8 Normal Mid CCA 48 11 Normal Distal CCA 51 9 Normal Bifurcation 40 8 Non Stenotic Plaque Proximal ICA 27 6 Normal Mid ICA 66 12 Normal Distal ICA 53 11 Normal ECA 78 9 Normal Vertebral Artery 33 6 Normal Ratio's Right ICA/CCA Ratio: 1.00 ICA/CCA Values: 49/49 Left ICA/CCA Ratio: 1.38 ICA/CCA Values: 66/48 Updated by Cliff Jackson MD, FACS on 07/31/2016 11:47:56 AM Cliff Jackson MD electronically signed on 07/31/2016 11:48:42 AM with status of Final
[2016-07-31] MEDS ORDERED: MOM Conc 10 ML UD.LIQ PO PRN (12:15)
--- NOTE | 2016-07-31 14:33 | Internal Med Progress Note ---
Date of Encounter: 07/31/16 Time of Encounter: 14:31 - Assessment and plan (1) CVA (cerebral vascular accident) Current Visit: Yes Status: Acute Assessment and plan: admitted for expressive aphasia from [place] CT Head : no new infarct or bleed. ECHO: Pending. Carotid doppler : Pending. has advanced dementia and [place] resident. plan: complete the work up no major invasive procedures. likely back to [place] 07/31/2016. Neurological on the board. We will follow the recommendations. Qualifiers: CVA mechanism: unspecified Qualified Code(s): I63.9 - Cerebral infarction, unspecified (2) HTN (hypertension) Current Visit: Yes Status: Acute Assessment and plan: will keep above 170 in view of new aphasia, possible infarct Unable to get MRI due to pacemaker. Qualifiers: Hypertension type: essential hypertension Qualified Code(s): I10 - Essential (primary) hypertension (3) Parkinson disease Current Visit: Yes Status: Acute Assessment and plan: resume home meds. (4) CKD (chronic kidney disease) stage 3, GFR 30-59 ml/min Current Visit: Yes Status: Acute Assessment and plan: no NSAIDs close monitoring labs in AM (5) Expressive aphasia Current Visit: Yes Status: Acute Assessment and plan: likely CVA Will repeat CT head tomorrow. (6) DVT prophylaxis Current Visit: Yes Status: Acute Assessment and plan: heparin Medical Decision Making : In spite of appropriate meds still has risk of worsening as he has advanced age and multiple comorbidities. - Subjective Interval history: seen and examined. patient is not communicating does not appeared to be in stress. examined him at ECHO room. 07/31/2016. Patient seen and examined. We are unable to speak any words. No family at bedside. Noted that there is a orange colored urine in the urine bag. We will keep a close eye. if bleeding gets worse then we will get urology for further evaluation. - Constitutional Vitals: Temp Pulse Resp BP Pulse Ox 97.7 F 60 20 184/94 94 07/31/16 12:12 07/31/16 11:48 07/31/16 12:12 07/31/16 12:12 07/31/16 12:12 General appearance: Present: A&O X 0 - Head Head exam: Present: atraumatic, normocephalic - Eye Eye exam: Present: PERRL, conjuntiva pink, sclera anicteric Pupils: Present: PERRL - Neck Neck exam general surgery: Present: supple, trachea midline. Absent: lymphadenopathy - Respiratory Respiratory exam: Present: CTAB. Absent: accessory muscle use, rales, rhonchi, wheezes - Cardiovascular Cardiovascular exam: Present: RRR, +S1, +S2. Absent: diastolic murmur, gallop, rubs, systolic murmur - GI/Abdominal GI/Abdominal exam: Present: normal bowel sounds, soft, no peritoneal signs. Absent: distended, tenderness - Extremities Exam Extremities exam: Present: warm, radial pulses palpable and symetrical. Absent : calf tenderness, cyanotic, pedal edema - Neurological Exam Neurological exam: Present: CN II-XII intact, oriented X3, no focal deficits. Absent: pronater drift, facial droop, speech deficit - Skin Skin exam: Present: dry, intact Internal Medicine: Result - Labs CBC & Chem 7: 07/30/16 02:02 07/30/16 02:02 Labs: Urine 07/31/16 Range/Units 03:00 Urine Color Yellow (Yellow) Urine Clarity Clear (Clear) Urine pH 6.0 (5.0-8.0) pH Units Ur Specific [place] 1.028 H (1.010-1.025) Urine Protein >=300 H (Neg-Trace) mg/dL Urine Glucose (UA) Normal (Normal) mg/dL - ABG Interpretation ABG results: PT/INR, D-dimer PT 11.6 Seconds (9.4-12.1) 07/29/16 18:04 Consult Discharge Plan - Plan Instructions: Parkinson's Disease (DC), Parkinson's Disease (GEN), Ischemic Stroke (DC), Ischemic Stroke (GEN), Chronic Hypertension (DC) Referrals: Michel Stevens [Primary Care Provider] -
[2016-07-31] MEDS: Melatonin 3 MG TABLET PO SCH (21:35)
[2016-08-01 05:06] LABS: Basophils % 0.3 %; Eosinophils # 0.3 K/mcL (0.0-0.6); Eosinophils % 3.8 %; Hematocrit 43.7 % (37.5-50.1); Hemoglobin 14.6 g/dL (12.9-16.9); Immature Granulocytes % 0.2 % (0-4); Lymphocytes # 1.3 K/mcL (0.6-4.6); Lymphocytes % 14.5 %; Mean Corpuscular HGB Conc 33.4 g/dL (31.6-35.5); Mean Corpuscular Hemoglobin 30.1 pg (28.0-33.3); Mean Corpuscular Volume 90.1 fL (83.0-100.0); Mean Platelet Volume 10.8 fL (9.4-12.4); Monocytes # 1.1 K/mcL (0.0-1.3); Monocytes % 11.9 %; Neutrophils # 6.2 K/mcL (1.6-8.9); Platelet Count 184 K/mcL (140-400); Red Blood Count 4.85 M/mcL (4.19-5.50); Red Cell Distribution Width 15.1 % (11.5-14.5); Segmented Neutrophils % 69.3 %
[2016-08-01 05:19] LABS: Albumin 3.2 g/dL (3.5-5.0); Albumin/Globulin Ratio 0.9 (1.1-2.2); Alkaline Phosphatase 70 Units/L (38-126); Aspartate Amino Transferase 19 Units/L (5-34); BUN/Creatinine Ratio 17 (6-26); Bilirubin,Total 0.7 mg/dL (0.2-1.2); Blood Urea Nitrogen 22 mg/dL (8-26); Carbon Dioxide 23 mEq/L (19-29); Chloride 107 mEq/L (98-109); Globulin 3.7 g/dL (2.4-3.5); Glucose 114 mg/dL (70-99); Osmolality,Calculated 300 (280-300); Potassium 3.6 mEq/L (3.5-4.5); Sodium 143 mEq/L (136-145); Total Protein 6.9 g/dL (6.0-8.3); eGFR For African Americans > 60 (> 60); eGFR For Non-African Americans 51 (> 60)
[2016-08-01 05:23] LABS: Alanine Aminotransferase < 6 Units/L (0-55)
[2016-08-01] MEDS: *HR* Heparin 5,000 UNIT/ML VIAL SQ SCH (05:27)
[2016-08-01] MEDS: Aspirin Enteric Coated 81 MG Tablet PO SCH (10:47)
[2016-08-01] MEDS: Sennosides 8.6 MG TABLET PO SCH ×2 (10:48→21:31)
[2016-08-01] MEDS: Finasteride 5 MG TABLET PO SCH (10:48)
[2016-08-01] MEDS: Carbidopa/Levodopa 25/100 TABLET PO SCH ×2 (10:48→21:31)
[2016-08-01] MEDS: amLODIPine 5 MG TABLET PO SCH (10:48)
[2016-08-01] MEDS: Metoprolol XL (24 HR) Succ 50 MG TAB.ER.24H PO SCH (10:49)
[2016-08-01] MEDS: Furosemide 20 MG TABLET PO SCH (10:49)
--- NOTE | 2016-08-01 16:41 | Internal Med Progress Note ---
Date of Encounter: 08/01/16 Time of Encounter: 16:37 - Assessment and plan (1) Hematuria Current Visit: Yes Status: Acute Assessment and plan: Patient has a new onset of hematuria. Folley catheter was placed yesterday. There was a mild hematuria after that but noted that patient's urine was clean and no hematuria noted. Since this morning there is persistent hematuria. Plan: 1. Urology opinion. We will monitor his CBC (2) CVA (cerebral vascular accident) Current Visit: Yes Status: Acute Assessment and plan: admitted for expressive aphasia from [place] CT Head : no new infarct or bleed. ECHO: Pending. Carotid doppler : Pending. has advanced dementia and [place] resident. plan: complete the work up no major invasive procedures. likely back to [place] 07/31/2016. Neurological on the board. We will follow the recommendations. 08/01/2016. Patient is unable to speak and he sentences. Neurology signed off. Qualifiers: CVA mechanism: unspecified Qualified Code(s): I63.9 - Cerebral infarction, unspecified (3) HTN (hypertension) Current Visit: Yes Status: Acute Assessment and plan: will keep above 170 in view of new aphasia, possible infarct Unable to get MRI due to pacemaker. Qualifiers: Hypertension type: essential hypertension Qualified Code(s): I10 - Essential (primary) hypertension (4) Parkinson disease Current Visit: Yes Status: Acute Assessment and plan: resume home meds. (5) CKD (chronic kidney disease) stage 3, GFR 30-59 ml/min Current Visit: Yes Status: Acute (6) Expressive aphasia Current Visit: Yes Status: Acute Assessment and plan: likely CVA Will repeat CT head tomorrow. (7) DVT prophylaxis Current Visit: Yes Status: Acute Assessment and plan: SCD Medical Decision Making : In spite of appropriate meds still has risk of worsening as he has advanced age and multiple comorbidities. - Subjective Interval history: seen and examined. patient is not communicating does not appeared to be in stress. examined him at ECHO room. 07/31/2016. Patient seen and examined. We are unable to speak any words. No family at bedside. Noted that there is a orange colored urine in the urine bag. We will keep a close eye. if bleeding gets worse then we will get urology for further evaluation. 08/01/2016. Patient seen and examined. Patient is unable to speak any words. No family at bedside. Patient is a persistent hematuria. We will get opinion from urology. - Constitutional Vitals: Temp Pulse Resp BP Pulse Ox 99 F 60 16 166/94 95 08/01/16 15:24 08/01/16 15:24 08/01/16 15:24 08/01/16 15:24 08/01/16 15:24 General appearance: Present: A&O X 0 - Head Head exam: Present: atraumatic, normocephalic - Eye Eye exam: Present: PERRL, conjuntiva pink, sclera anicteric Pupils: Present: PERRL - Neck Neck exam general surgery: Present: supple, trachea midline. Absent: lymphadenopathy - Respiratory Respiratory exam: Present: CTAB. Absent: accessory muscle use, rales, rhonchi, wheezes - Cardiovascular Cardiovascular exam: Present: RRR, +S1, +S2. Absent: diastolic murmur, gallop, rubs, systolic murmur - GI/Abdominal GI/Abdominal exam: Present: normal bowel sounds, soft, no peritoneal signs. Absent: distended, tenderness - Extremities Exam Extremities exam: Present: warm, radial pulses palpable and symetrical. Absent : calf tenderness, cyanotic, pedal edema - Neurological Exam Neurological exam: Present: CN II-XII intact, oriented X3, no focal deficits. Absent: pronater drift, facial droop, speech deficit - Skin Skin exam: Present: dry, intact Internal Medicine: Result - Labs CBC & Chem 7: 08/01/16 04:03 08/01/16 04:03 Labs: Short CBC 08/01/16 Range/Units 04:03 WBC 9.0 (4.3-11.1) K/mcL Hgb 14.6 (12.9-16.9) g/dL Hct 43.7 (37.5-50.1) % Plt Count 184 (140-400) K/mcL Neutrophils # 6.2 (1.6-8.9) K/mcL BMP 08/01/16 04:03 Sodium 143 Potassium 3.6 Chloride 107 Carbon Dioxide 23 BUN 22 Creatinine 1.32 H Glucose 114 H Calcium 10.0 Liver Function 08/01/16 Range/Units 04:03 Total Bilirubin 0.7 (0.2-1.2) mg/dL AST 19 (5-34) Units/L ALT < 6 (0-55) Units/L Alkaline Phosphatase 70 (38-126) Units/L Albumin 3.2 L (3.5-5.0) g/dL - ABG Interpretation ABG results: PT/INR, D-dimer PT 11.6 Seconds (9.4-12.1) 07/29/16 18:04 Consult Discharge Plan - Plan Instructions: Parkinson's Disease (DC), Parkinson's Disease (GEN), Ischemic Stroke (DC), Ischemic Stroke (GEN), Chronic Hypertension (DC) Referrals: Michel Stevens [Primary Care Provider] -
[2016-08-01] MEDS ORDERED: 0.9 % Sodium Chloride 2,000 ML ONE (17:08)
--- NOTE | 2016-08-01 17:58 | Urology - Consult Note ---
Date of Encounter: 08/01/16 Time of Encounter: 17:54 - Assessment and Plan (1) Hematuria Current Visit: Yes Status: Acute Assessment and plan: 85-year-old man with a history of hematuria. I was able place a new catheter and to irrigate out his clots. His urine is clear now on slow CBI. We will continue his catheter for about a week and then remove it in the office. I answered all of his family's questions. Urology CN:HPI Consult date: 08/01/16 Reason for consult Urology: Gross Hematuria Requesting physician: Edil Ivan History of present illness: 85 year old man was admitted for a stroke. He had a perez catheter placed. His urine became more bloody and it persisted. I was asked to see him. HIs catheter has fruit punch colored urine. He is having some bladder spasms. He hasn't had his catheter irrigated. Past Med Surg Social Fam HX - Past Medical History Medical history: dementia, hyperlipidemia, hypertension, renal disease Psychiatric history: depression - Past Surgical History Surgical History: AICD - Social History Smoking Status: Unknown if ever smoked Smokeless Tobacco Status: No Alcohol use: none Drug use: none Medications and Allergies Amlodipine [Amlodipine Besylate] 10 mg PO DAILY 03/31/15 [History] Carbidopa/Levodopa 25/100 [Sinemet] 1 each PO BID 03/31/15 [History] Cholecalciferol (Vitamin D3) [Vitamin D] 1,000 unit PO BID 03/31/15 [History] Finasteride [Proscar] 5 mg PO DAILY 03/31/15 [History] Lactulose 20 gm PO QAM 03/31/15 [History] Melatonin [Melatin] 3 mg PO HS 03/31/15 [History] Memantine HCl [Namenda Xr] 7 mg PO DAILY 03/31/15 [History] Metoprolol XL (24 HR) Succ [Toprol XL] 50 mg PO DAILY 03/31/15 [History] Omeprazole [PriLOSEC] 20 mg PO DAILY 03/31/15 [History] Probenecid [Benemid] 500 mg PO BID 03/31/15 [History] Sertraline [Zoloft] 150 mg PO DAILY 03/31/15 [History] Vitamin B Complex [B Complex] 1 each PO DAILY 03/31/15 [History] Acetaminophen [Tylenol] 500 mg PO TID 07/29/16 [History] Acetaminophen [Tylenol] 650 mg PO Q8H PRN 07/29/16 [History] Bisacodyl [Dulcolax] 10 mg RC DAILY PRN 07/29/16 [History] Furosemide [Lasix] 20 mg PO DAILY 07/29/16 [History] LORazepam [Ativan] 1 mg PO BID PRN 07/29/16 [History] Magnesium Hydroxide [Milk of Magnesia] 400 mg PO DAILY PRN 07/29/16 [History] Nitroglycerin [Nitrostat] 0.4 mg SL Q5M PRN 07/29/16 [History] Potassium Chloride [K-Tab ER] 20 meq PO DAILY 07/29/16 [History] Sennosides [Senna] 8.6 mg PO BID 07/29/16 [History] Allergies allopurinol Allergy (Verified 03/31/15 14:23) See Comments Review of Systems - Constitutional no chills, no fever(s) - EENT Nose, mouth and throat: no dizziness - Cardiovascular no chest pain - Respiratory no dyspnea - Gastrointestinal no nausea, no vomiting - Genitourinary hematuria, no flank pain - Musculoskeletal no back pain - Integumentary no erythema, no rash - Neurological no weakness - Psychiatric no suicidal ideation - Hematologic/Lymphatic no easy bleeding - Allergic/Immunologic no wheezing Exam Initial Vital Signs Temp Pulse Resp BP Pulse Ox 97.5 F L 61 14 210/114 96 07/29/16 17:46 07/29/16 17:46 07/29/16 17:46 07/29/16 17:46 07/29/16 17:46 - General physical appearance Present: well developed, well nourished, no distress - Eyes Absent: icteric - ENT Present: normal nares - Neck Present: trachea midline - Respiratory Present: normal respiratory effort - Cardiovascular Cardiovascular exam IM: RRR - Abdomen Abdomen: Present: soft - Genitourinary normal penis with no external lesions (phimotic foreskin. 16 sinhal[place] coude catheter with bloody urine.) Urology Results - Labs 08/01/16 04:03 08/01/16 04:03 Abnormal lab results RDW 15.1 % (11.5-14.5) H 08/01/16 04:03 Creatinine 1.32 mg/dL (0.72-1.25) H 08/01/16 04:03 Est GFR (Non-Af Amer) 51 (> 60) L 08/01/16 04:03 Glucose 114 mg/dL (70-99) H 08/01/16 04:03 POC Glucose 111 (58-89) H 08/01/16 16:45 Troponin I 0.04 ng/mL (0-0.03) H* 07/30/16 05:56 Albumin 3.2 g/dL (3.5-5.0) L 08/01/16 04:03 Globulin 3.7 g/dL (2.4-3.5) H 08/01/16 04:03 Albumin/Globulin Ratio 0.9 (1.1-2.2) L 08/01/16 04:03 Triglycerides 162 mg/dL (< 150) H 07/30/16 02:02 VLDL Cholesterol, Calc 32 mg/dL (< 31) H 07/30/16 02:02 Ur Specific [place] 1.028 (1.010-1.025) H 07/31/16 03:00 Urine Protein >=300 mg/dL (Neg-Trace) H 07/31/16 03:00 Urine Microscopic RBC 5-15 per hpf (0-3) H 07/31/16 03:00 Ur Squamous Epith Cells Many per lpf (None-Few) H 07/31/16 03:00 Diabetes panel 08/01/16 Range/Units 04:03 Sodium 143 (136-145) mEq/L Potassium 3.6 (3.5-4.5) mEq/L Chloride 107 (98-109) mEq/L Carbon Dioxide 23 (19-29) mEq/L BUN 22 (8-26) mg/dL Creatinine 1.32 H (0.72-1.25) mg/dL Glucose 114 H (70-99) mg/dL Calcium 10.0 (8.6-10.8) mg/dL AST 19 (5-34) Units/L ALT < 6 (0-55) Units/L Alkaline Phosphatase 70 (38-126) Units/L Albumin 3.2 L (3.5-5.0) g/dL Calcium panel 08/01/16 Range/Units 04:03 Calcium 10.0 (8.6-10.8) mg/dL Albumin 3.2 L (3.5-5.0) g/dL Pituitary panel 08/01/16 Range/Units 04:03 Sodium 143 (136-145) mEq/L Potassium 3.6 (3.5-4.5) mEq/L Chloride 107 (98-109) mEq/L Carbon Dioxide 23 (19-29) mEq/L BUN 22 (8-26) mg/dL Creatinine 1.32 H (0.72-1.25) mg/dL Glucose 114 H (70-99) mg/dL Calcium 10.0 (8.6-10.8) mg/dL Adrenal panel 08/01/16 Range/Units 04:03 Sodium 143 (136-145) mEq/L Potassium 3.6 (3.5-4.5) mEq/L Chloride 107 (98-109) mEq/L Carbon Dioxide 23 (19-29) mEq/L BUN 22 (8-26) mg/dL Creatinine 1.32 H (0.72-1.25) mg/dL Glucose 114 H (70-99) mg/dL Calcium 10.0 (8.6-10.8) mg/dL Total Bilirubin 0.7 (0.2-1.2) mg/dL AST 19 (5-34) Units/L ALT < 6 (0-55) Units/L Alkaline Phosphatase 70 (38-126) Units/L Albumin 3.2 L (3.5-5.0) g/dL All other labs normal. Procedures:Urology - Catheter Insertion (Urinary) Additional comments: I removed his 16 [place] Perez catheter. Under sterile conditions I placed a 22 [place] three-way Perez. I irrigated out moderate amount of clot. Eventually his urine became clear. I started him on continuous bladder irrigation. He tolerated the procedure well. Consult Discharge Plan - Plan Instructions: Parkinson's Disease (DC), Parkinson's Disease (GEN), Ischemic Stroke (DC), Ischemic Stroke (GEN), Chronic Hypertension (DC) Referrals: Michel Stevens [Primary Care Provider] -
[2016-08-01 21:13] LABS: Hematocrit 44.3 % (37.5-50.1); Hemoglobin 14.9 g/dL (12.9-16.9); Mean Corpuscular HGB Conc 33.6 g/dL (31.6-35.5); Mean Corpuscular Hemoglobin 29.7 pg (28.0-33.3); Mean Corpuscular Volume 88.4 fL (83.0-100.0); Red Blood Count 5.01 M/mcL (4.19-5.50); Red Cell Distribution Width 15.1 % (11.5-14.5)
[2016-08-01 21:14] LABS: Mean Platelet Volume 10.1 fL (9.4-12.4)
[2016-08-01] MEDS: Melatonin 3 MG TABLET PO SCH (21:32)
[2016-08-01 21:49] LABS: Immature Platelets 5.2 % (1.1-6.1)
[2016-08-02 04:43] LABS: Basophils # 0.1 K/mcL (0.0-0.2); Basophils % 0.5 %; Eosinophils # 0.3 K/mcL (0.0-0.6); Eosinophils % 3.1 %; Hematocrit 42.5 % (37.5-50.1); Hemoglobin 13.8 g/dL (12.9-16.9); Immature Granulocytes % 0.4 % (0-4); Lymphocytes # 1.4 K/mcL (0.6-4.6); Lymphocytes % 14.9 %; Mean Corpuscular HGB Conc 32.5 g/dL (31.6-35.5); Mean Corpuscular Hemoglobin 29.1 pg (28.0-33.3); Mean Corpuscular Volume 89.7 fL (83.0-100.0); Monocytes # 1.3 K/mcL (0.0-1.3); Neutrophils # 6.5 K/mcL (1.6-8.9); Platelet Count 213 K/mcL (140-400); Red Blood Count 4.74 M/mcL (4.19-5.50); Red Cell Distribution Width 14.9 % (11.5-14.5); Segmented Neutrophils % 68.1 %
[2016-08-02 05:01] LABS: Albumin 3.1 g/dL (3.5-5.0); Alkaline Phosphatase 68 Units/L (38-126); BUN/Creatinine Ratio 15 (6-26); Bilirubin,Total 0.6 mg/dL (0.2-1.2); Blood Urea Nitrogen 24 mg/dL (8-26); Calcium 10.1 mg/dL (8.6-10.8); Carbon Dioxide 22 mEq/L (19-29); Chloride 106 mEq/L (98-109); Glucose 122 mg/dL (70-99); Osmolality,Calculated 301 (280-300); Sodium 143 mEq/L (136-145); Total Protein 7.3 g/dL (6.0-8.3); eGFR For African Americans 50 (> 60); eGFR For Non-African Americans 41 (> 60)
[2016-08-02 05:02] LABS: Albumin/Globulin Ratio 0.7 (1.1-2.2); Globulin 4.2 g/dL (2.4-3.5)
[2016-08-02 05:08] LABS: Alanine Aminotransferase < 6 Units/L (0-55); Aspartate Amino Transferase 37 Units/L (5-34); Potassium 4.2 mEq/L (3.5-4.5)
[2016-08-02] MEDS: Metoprolol XL (24 HR) Succ 50 MG TAB.ER.24H PO SCH (09:16)
[2016-08-02] MEDS: Finasteride 5 MG TABLET PO SCH (09:16)
[2016-08-02] MEDS: Carbidopa/Levodopa 25/100 TABLET PO SCH ×2 (09:16→22:33)
[2016-08-02] MEDS: Aspirin Enteric Coated 81 MG Tablet PO SCH (09:16)
[2016-08-02] MEDS: Furosemide 20 MG TABLET PO SCH (09:16)
[2016-08-02] MEDS: amLODIPine 5 MG TABLET PO SCH (09:16)
[2016-08-02] MEDS: Sennosides 8.6 MG TABLET PO SCH ×2 (09:16→22:34)
--- NOTE | 2016-08-02 11:06 | Urology Progress Note ---
Date of Encounter: 08/02/16 Time of Encounter: 11:06 - Assessment and Plan (1) Hematuria Current Visit: Yes Status: Acute Assessment and plan: Hematuria has resolved. We will stop the CBI today. He should continue the catheter for 1 week. Progress Note Narrative: 85-year-old gentleman with a history of hematuria. Continuous bladder Irrigation was utilized overnight. His urine is clear today. Objective Initial Vital Signs Temp Pulse Resp BP Pulse Ox 97.5 F L 61 14 210/114 96 07/29/16 17:46 07/29/16 17:46 07/29/16 17:46 07/29/16 17:46 07/29/16 17:46 - General physical appearance Present: well developed, well nourished, no distress - Respiratory Present: normal respiratory effort - Abdomen Present: soft - Genitourinary Urine Appearance: Present: Clear - Labs 08/02/16 04:21 08/02/16 04:21 Diabetes panel 08/02/16 Range/Units 04:21 Sodium 143 (136-145) mEq/L Potassium 4.2 (3.5-4.5) mEq/L Chloride 106 (98-109) mEq/L Carbon Dioxide 22 (19-29) mEq/L BUN 24 (8-26) mg/dL Creatinine 1.59 H (0.72-1.25) mg/dL Glucose 122 H (70-99) mg/dL Calcium 10.1 (8.6-10.8) mg/dL AST 37 H (5-34) Units/L ALT < 6 (0-55) Units/L Alkaline Phosphatase 68 (38-126) Units/L Albumin 3.1 L (3.5-5.0) g/dL Calcium panel 08/02/16 Range/Units 04:21 Calcium 10.1 (8.6-10.8) mg/dL Albumin 3.1 L (3.5-5.0) g/dL Pituitary panel 08/02/16 Range/Units 04:21 Sodium 143 (136-145) mEq/L Potassium 4.2 (3.5-4.5) mEq/L Chloride 106 (98-109) mEq/L Carbon Dioxide 22 (19-29) mEq/L BUN 24 (8-26) mg/dL Creatinine 1.59 H (0.72-1.25) mg/dL Glucose 122 H (70-99) mg/dL Calcium 10.1 (8.6-10.8) mg/dL Adrenal panel 08/02/16 Range/Units 04:21 Sodium 143 (136-145) mEq/L Potassium 4.2 (3.5-4.5) mEq/L Chloride 106 (98-109) mEq/L Carbon Dioxide 22 (19-29) mEq/L BUN 24 (8-26) mg/dL Creatinine 1.59 H (0.72-1.25) mg/dL Glucose 122 H (70-99) mg/dL Calcium 10.1 (8.6-10.8) mg/dL Total Bilirubin 0.6 (0.2-1.2) mg/dL AST 37 H (5-34) Units/L ALT < 6 (0-55) Units/L Alkaline Phosphatase 68 (38-126) Units/L Albumin 3.1 L (3.5-5.0) g/dL Consult Discharge Plan - Plan Instructions: Parkinson's Disease (DC), Parkinson's Disease (GEN), Ischemic Stroke (DC), Ischemic Stroke (GEN), Chronic Hypertension (DC) Referrals: Michel Stevens [Primary Care Provider] -
--- NOTE | 2016-08-02 14:26 | Internal Med Progress Note ---
Date of Encounter: 08/02/16 Time of Encounter: 14:23 - Assessment and plan (1) Hematuria Current Visit: Yes Status: Acute Assessment and plan: Patient has a new onset of hematuria. Folley catheter was placed yesterday. There was a mild hematuria after that but noted that patient's urine was clean and no hematuria noted. Since this morning there is persistent hematuria. Plan: 1. Urology opinion. We will monitor his CBC 08/02/2016. Noted that [address] way Bladder irrigation is going on. Hematuria resolved. Appreciated efforts from urology. (2) CVA (cerebral vascular accident) Current Visit: Yes Status: Acute Assessment and plan: admitted for expressive aphasia from [place] CT Head : no new infarct or bleed. ECHO: Pending. Carotid doppler : Pending. has advanced dementia and [place] resident. plan: complete the work up no major invasive procedures. likely back to [place] 07/31/2016. Neurological on the board. We will follow the recommendations. 08/01/2016. Patient is unable to speak and he sentences. Neurology signed off. 08/02/2016 Neurology signed off. Will be back to [facility] in 1-2 days. Qualifiers: CVA mechanism: unspecified Qualified Code(s): I63.9 - Cerebral infarction, unspecified (3) HTN (hypertension) Current Visit: Yes Status: Acute Assessment and plan: will keep above 170 in view of new aphasia, possible infarct Unable to get MRI due to pacemaker. Qualifiers: Hypertension type: essential hypertension Qualified Code(s): I10 - Essential (primary) hypertension (4) Parkinson disease Current Visit: Yes Status: Acute Assessment and plan: resume home meds. (5) CKD (chronic kidney disease) stage 3, GFR 30-59 ml/min Current Visit: Yes Status: Acute Assessment and plan: no NSAIDs close monitoring labs in AM (6) Expressive aphasia Current Visit: Yes Status: Acute Assessment and plan: likely CVA Will repeat CT head tomorrow. (7) DVT prophylaxis Current Visit: Yes Status: Acute Assessment and plan: SCD Medical Decision Making : In spite of appropriate meds still has risk of worsening as he has advanced age and multiple comorbidities. - Subjective Interval history: seen and examined. patient is not communicating does not appeared to be in stress. examined him at ECHO room. 07/31/2016. Patient seen and examined. We are unable to speak any words. No family at bedside. Noted that there is a orange colored urine in the urine bag. We will keep a close eye. if bleeding gets worse then we will get urology for further evaluation. 08/01/2016. Patient seen and examined. Patient is unable to speak any words. No family at bedside. Patient is a persistent hematuria. We will get opinion from urology. 08/02/2016 Patient seen and examined. Chart is reviewed. Family at bedside. Noted that patient has a 3-way bladder Catheter irrigation is going on. Hematuria is resolved. - Constitutional Vitals: Temp Pulse Resp BP Pulse Ox 98.5 F 60 16 164/92 95 08/02/16 12:12 08/02/16 12:12 08/02/16 12:12 08/02/16 12:12 08/02/16 12:12 General appearance: Present: A&O X 0 - Head Head exam: Present: atraumatic, normocephalic - Eye Eye exam: Present: PERRL, conjuntiva pink, sclera anicteric Pupils: Present: PERRL - Neck Neck exam general surgery: Present: supple, trachea midline. Absent: lymphadenopathy - Respiratory Respiratory exam: Present: CTAB. Absent: accessory muscle use, rales, rhonchi, wheezes - Cardiovascular Cardiovascular exam: Present: RRR, +S1, +S2. Absent: diastolic murmur, gallop, rubs, systolic murmur - GI/Abdominal GI/Abdominal exam: Present: normal bowel sounds, soft, no peritoneal signs. Absent: distended, tenderness - Extremities Exam Extremities exam: Present: warm, radial pulses palpable and symetrical. Absent : calf tenderness, cyanotic, pedal edema - Neurological Exam Neurological exam: Present: CN II-XII intact, oriented X3, no focal deficits. Absent: pronater drift, facial droop, speech deficit - Skin Skin exam: Present: dry, intact Internal Medicine: Result - Labs CBC & Chem 7: 08/02/16 04:21 08/02/16 04:21 Labs: Short CBC 08/01/16 08/02/16 Range/Units 20:37 04:21 WBC 10.8 9.6 (4.3-11.1) K/mcL Hgb 14.9 13.8 (12.9-16.9) g/dL Hct 44.3 42.5 (37.5-50.1) % Plt Count 225 213 (140-400) K/mcL Neutrophils # 6.5 (1.6-8.9) K/mcL BMP 08/02/16 04:21 Sodium 143 Potassium 4.2 Chloride 106 Carbon Dioxide 22 BUN 24 Creatinine 1.59 H Glucose 122 H Calcium 10.1 Liver Function 08/02/16 Range/Units 04:21 Total Bilirubin 0.6 (0.2-1.2) mg/dL AST 37 H (5-34) Units/L ALT < 6 (0-55) Units/L Alkaline Phosphatase 68 (38-126) Units/L Albumin 3.1 L (3.5-5.0) g/dL - ABG Interpretation ABG results: PT/INR, D-dimer PT 11.6 Seconds (9.4-12.1) 07/29/16 18:04 Consult Discharge Plan - Plan Instructions: Parkinson's Disease (DC), Parkinson's Disease (GEN), Ischemic Stroke (DC), Ischemic Stroke (GEN), Chronic Hypertension (DC) Referrals: Michel Stevens [Primary Care Provider] -
[2016-08-02] MEDS ORDERED: Acetaminophen 325 MG TABLET PO PRN (18:56)
[2016-08-02] MEDS: Melatonin 3 MG TABLET PO SCH (22:34)
[2016-08-02] MEDS ORDERED: Acetaminophen IV 500 MG/50 ML INFUS..BTL IVPB ONE (22:58)
[2016-08-03] MEDS ORDERED: *HR* HYDROmorphone (PF) 1 MG/ML SYRINGE IVP PRN (00:19)
[2016-08-03] MEDS: *HR* HYDROmorphone (PF) 1 MG/ML SYRINGE IVP PRN ×3 (04:00→17:59)
[2016-08-03 06:50] LABS: Basophils % 0.3 %; Eosinophils # 0.3 K/mcL (0.0-0.6); Eosinophils % 2.1 %; Hemoglobin 13.3 g/dL (12.9-16.9); Immature Granulocytes % 0.9 % (0-4); Lymphocytes # 1.2 K/mcL (0.6-4.6); Lymphocytes % 9.5 %; Mean Corpuscular HGB Conc 33.3 g/dL (31.6-35.5); Mean Corpuscular Hemoglobin 30.3 pg (28.0-33.3); Mean Corpuscular Volume 91.1 fL (83.0-100.0); Mean Platelet Volume 10.3 fL (9.4-12.4); Monocytes # 1.3 K/mcL (0.0-1.3); Monocytes % 10.8 %; Neutrophils # 9.4 K/mcL (1.6-8.9); Platelet Count 213 K/mcL (140-400); Red Blood Count 4.39 M/mcL (4.19-5.50); Red Cell Distribution Width 15.2 % (11.5-14.5); Segmented Neutrophils % 76.4 %
[2016-08-03 07:02] LABS: Albumin 3.1 g/dL (3.5-5.0); Albumin/Globulin Ratio 0.8 (1.1-2.2); Alkaline Phosphatase 71 Units/L (38-126); Aspartate Amino Transferase 23 Units/L (5-34); BUN/Creatinine Ratio 16 (6-26); Bilirubin,Total 0.6 mg/dL (0.2-1.2); Blood Urea Nitrogen 29 mg/dL (8-26); Calcium 9.9 mg/dL (8.6-10.8); Carbon Dioxide 23 mEq/L (19-29); Chloride 107 mEq/L (98-109); Globulin 3.8 g/dL (2.4-3.5); Glucose 138 mg/dL (70-99); Osmolality,Calculated 302 (280-300); Sodium 142 mEq/L (136-145); Total Protein 6.9 g/dL (6.0-8.3); eGFR For African Americans 43 (> 60); eGFR For Non-African Americans 35 (> 60)
[2016-08-03 07:13] LABS: Alanine Aminotransferase < 6 Units/L (0-55)
--- NOTE | 2016-08-03 07:29 | Urology Progress Note ---
Date of Encounter: 08/03/16 Time of Encounter: 07:28 - Assessment and Plan (1) Hematuria Current Visit: Yes Status: Acute Assessment and plan: Hematuria resolving. d/c perez catheter in 1 week. [facility] If patient unable to void, a catheter would need to be replaced. Progress Note Narrative: Doing well. CBI off yesterday. Urine remains a tea color. Tolerating catheter. Objective Initial Vital Signs Temp Pulse Resp BP Pulse Ox 97.5 F L 61 14 210/114 96 07/29/16 17:46 07/29/16 17:46 07/29/16 17:46 07/29/16 17:46 07/29/16 17:46 - General physical appearance Present: well developed, well nourished, no distress - Respiratory Present: normal respiratory effort - Abdomen Present: soft - Genitourinary Present: normal penis with no external lesions Urine Appearance: Present: Clear (clear to tea color) - Labs 08/03/16 06:36 08/03/16 06:36 Diabetes panel 08/03/16 Range/Units 06:36 Sodium 142 (136-145) mEq/L Potassium 4.0 (3.5-4.5) mEq/L Chloride 107 (98-109) mEq/L Carbon Dioxide 23 (19-29) mEq/L BUN 29 H (8-26) mg/dL Creatinine 1.83 H (0.72-1.25) mg/dL Glucose 138 H (70-99) mg/dL Calcium 9.9 (8.6-10.8) mg/dL AST 23 (5-34) Units/L ALT < 6 (0-55) Units/L Alkaline Phosphatase 71 (38-126) Units/L Albumin 3.1 L (3.5-5.0) g/dL Calcium panel 08/03/16 Range/Units 06:36 Calcium 9.9 (8.6-10.8) mg/dL Albumin 3.1 L (3.5-5.0) g/dL Pituitary panel 08/03/16 Range/Units 06:36 Sodium 142 (136-145) mEq/L Potassium 4.0 (3.5-4.5) mEq/L Chloride 107 (98-109) mEq/L Carbon Dioxide 23 (19-29) mEq/L BUN 29 H (8-26) mg/dL Creatinine 1.83 H (0.72-1.25) mg/dL Glucose 138 H (70-99) mg/dL Calcium 9.9 (8.6-10.8) mg/dL Adrenal panel 08/03/16 Range/Units 06:36 Sodium 142 (136-145) mEq/L Potassium 4.0 (3.5-4.5) mEq/L Chloride 107 (98-109) mEq/L Carbon Dioxide 23 (19-29) mEq/L BUN 29 H (8-26) mg/dL Creatinine 1.83 H (0.72-1.25) mg/dL Glucose 138 H (70-99) mg/dL Calcium 9.9 (8.6-10.8) mg/dL Total Bilirubin 0.6 (0.2-1.2) mg/dL AST 23 (5-34) Units/L ALT < 6 (0-55) Units/L Alkaline Phosphatase 71 (38-126) Units/L Albumin 3.1 L (3.5-5.0) g/dL Consult Discharge Plan - Plan Instructions: Parkinson's Disease (DC), Parkinson's Disease (GEN), Ischemic Stroke (DC), Ischemic Stroke (GEN), Chronic Hypertension (DC) Referrals: Michel Stevens [Primary Care Provider] -
[2016-08-03] MEDS: amLODIPine 5 MG TABLET PO SCH (10:21)
[2016-08-03] MEDS: Furosemide 20 MG TABLET PO SCH (10:22)
[2016-08-03] MEDS: Sennosides 8.6 MG TABLET PO SCH ×2 (10:22→22:41)
[2016-08-03] MEDS: Finasteride 5 MG TABLET PO SCH (10:22)
[2016-08-03] MEDS: Carbidopa/Levodopa 25/100 TABLET PO SCH ×2 (10:22→22:41)
[2016-08-03] MEDS: Aspirin Enteric Coated 81 MG Tablet PO SCH (10:22)
[2016-08-03] MEDS: Metoprolol XL (24 HR) Succ 50 MG TAB.ER.24H PO SCH (10:23)
--- NOTE | 2016-08-03 13:40 | Internal Med Progress Note ---
Date of Encounter: 08/03/16 Time of Encounter: 13:38 - Assessment and plan (1) Hematuria Current Visit: Yes Status: Acute Assessment and plan: Patient has a new onset of hematuria. Folley catheter was placed yesterday. There was a mild hematuria after that but noted that patient's urine was clean and no hematuria noted. Since this morning there is persistent hematuria. Plan: 1. Urology opinion. We will monitor his CBC 08/02/2016. Noted that [address] way Bladder irrigation is going on. Hematuria resolved. Appreciated efforts from urology. 08/03/2016 Hematuria resolved Noted that urology signed off. Will follow with urology recommendation. (2) CVA (cerebral vascular accident) Current Visit: Yes Status: Acute Assessment and plan: admitted for expressive aphasia from [place] Head : no new infarct or bleed. ECHO: Pending. Carotid doppler : Pending. has advanced dementia and [place] resident. plan: complete the work up no major invasive procedures. likely back to [place] 07/31/2016. Neurological on the board. We will follow the recommendations. 08/01/2016. Patient is unable to speak and he sentences. Neurology signed off. 08/02/2016 Neurology signed off. Will be back to residential in 1-2 days. 08/03/2016. Patient will likely go back to residential tomorrow. Qualifiers: CVA mechanism: unspecified Qualified Code(s): I63.9 - Cerebral infarction, unspecified (3) HTN (hypertension) Current Visit: Yes Status: Acute Assessment and plan: will keep above 170 in view of new aphasia, possible infarct Unable to get MRI due to pacemaker. Qualifiers: Hypertension type: essential hypertension Qualified Code(s): I10 - Essential (primary) hypertension (4) Parkinson disease Current Visit: Yes Status: Acute Assessment and plan: resume home meds. (5) CKD (chronic kidney disease) stage 3, GFR 30-59 ml/min Current Visit: Yes Status: Acute Assessment and plan: no NSAIDs close monitoring labs in AM 08/03/2016 Noted a mild elevation in creatinine. We will give him IV fluids. We will monitor very closely. (6) Expressive aphasia Current Visit: Yes Status: Acute Assessment and plan: likely CVA Will repeat CT head tomorrow. (7) DVT prophylaxis Current Visit: Yes Status: Acute - Subjective Interval history: seen and examined. patient is not communicating does not appeared to be in stress. examined him at ECHO room. 07/31/2016. Patient seen and examined. We are unable to speak any words. No family at bedside. Noted that there is a orange colored urine in the urine bag. We will keep a close eye. if bleeding gets worse then we will get urology for further evaluation. 08/01/2016. Patient seen and examined. Patient is unable to speak any words. No family at bedside. Patient is a persistent hematuria. We will get opinion from urology. 08/02/2016 Patient seen and examined. Chart is reviewed. Family at bedside. Noted that patient has a 3-way bladder Catheter irrigation is going on. Hematuria is resolved. 08/03/2016 Patient seen and examined. Chart reviewed. Patient is unable to communicate. No family at bedside. - Constitutional Vitals: Temp Pulse Resp BP Pulse Ox 98.9 F 60 16 138/60 95 08/03/16 11:37 08/03/16 11:37 08/03/16 11:37 08/03/16 11:37 08/03/16 11:37 General appearance: Present: A&O X 0 - Head Head exam: Present: atraumatic, normocephalic - Eye Eye exam: Present: PERRL, conjuntiva pink, sclera anicteric Pupils: Present: PERRL - Neck Neck exam general surgery: Present: supple, trachea midline. Absent: lymphadenopathy - Respiratory Respiratory exam: Present: CTAB. Absent: accessory muscle use, rales, rhonchi, wheezes - Cardiovascular Cardiovascular exam: Present: RRR, +S1, +S2. Absent: diastolic murmur, gallop, rubs, systolic murmur - GI/Abdominal GI/Abdominal exam: Present: normal bowel sounds, soft, no peritoneal signs. Absent: distended, tenderness - Extremities Exam Extremities exam: Present: warm, radial pulses palpable and symetrical. Absent : calf tenderness, cyanotic, pedal edema - Neurological Exam Neurological exam: Present: CN II-XII intact, oriented X3, no focal deficits. Absent: pronater drift, facial droop, speech deficit - Skin Skin exam: Present: dry, intact Internal Medicine: Result - Labs CBC & Chem 7: 08/03/16 06:36 08/03/16 06:36 Labs: Short CBC 08/03/16 Range/Units 06:36 WBC 12.4 H (4.3-11.1) K/mcL Hgb 13.3 (12.9-16.9) g/dL Hct 40.0 (37.5-50.1) % Plt Count 213 (140-400) K/mcL Neutrophils # 9.4 H (1.6-8.9) K/mcL BMP 08/03/16 06:36 Sodium 142 Potassium 4.0 Chloride 107 Carbon Dioxide 23 BUN 29 H Creatinine 1.83 H Glucose 138 H Calcium 9.9 Liver Function 08/03/16 Range/Units 06:36 Total Bilirubin 0.6 (0.2-1.2) mg/dL AST 23 (5-34) Units/L ALT < 6 (0-55) Units/L Alkaline Phosphatase 71 (38-126) Units/L Albumin 3.1 L (3.5-5.0) g/dL - ABG Interpretation ABG results: PT/INR, D-dimer PT 11.6 Seconds (9.4-12.1) 07/29/16 18:04 Consult Discharge Plan - Plan Instructions: Parkinson's Disease (DC), Parkinson's Disease (GEN), Ischemic Stroke (DC), Ischemic Stroke (GEN), Chronic Hypertension (DC) Referrals: Michel Stevens [Primary Care Provider] -
[2016-08-03] MEDS: 0.9 % Sodium Chloride 1,000 ML IVC SCH (14:45)
[2016-08-03] MEDS: Melatonin 3 MG TABLET PO SCH (22:41)
[2016-08-04] MEDS: 0.9 % Sodium Chloride 1,000 ML IVC SCH ×3 (01:30→21:02)
[2016-08-04 05:22] LABS: Basophils % 0.3 %; Eosinophils # 0.5 K/mcL (0.0-0.6); Eosinophils % 3.6 %; Hematocrit 39.6 % (37.5-50.1); Immature Granulocytes % 0.5 % (0-4); Lymphocytes # 1.4 K/mcL (0.6-4.6); Lymphocytes % 10.5 %; Mean Corpuscular HGB Conc 32.8 g/dL (31.6-35.5); Mean Corpuscular Hemoglobin 30.3 pg (28.0-33.3); Mean Corpuscular Volume 92.3 fL (83.0-100.0); Mean Platelet Volume 10.4 fL (9.4-12.4); Monocytes # 1.4 K/mcL (0.0-1.3); Monocytes % 10.9 %; Neutrophils # 9.7 K/mcL (1.6-8.9); Platelet Count 198 K/mcL (140-400); Red Blood Count 4.29 M/mcL (4.19-5.50); Red Cell Distribution Width 15.5 % (11.5-14.5); Segmented Neutrophils % 74.2 %
[2016-08-04 06:10] LABS: Albumin/Globulin Ratio 0.8 (1.1-2.2); Alkaline Phosphatase 70 Units/L (38-126); Aspartate Amino Transferase 16 Units/L (5-34); BUN/Creatinine Ratio 16 (6-26); Bilirubin,Total 0.8 mg/dL (0.2-1.2); Blood Urea Nitrogen 30 mg/dL (8-26); Calcium 9.6 mg/dL (8.6-10.8); Carbon Dioxide 22 mEq/L (19-29); Chloride 109 mEq/L (98-109); Globulin 3.7 g/dL (2.4-3.5); Glucose 132 mg/dL (70-99); Osmolality,Calculated 306 (280-300); Potassium 3.9 mEq/L (3.5-4.5); Sodium 144 mEq/L (136-145); Total Protein 6.7 g/dL (6.0-8.3); eGFR For African Americans 42 (> 60); eGFR For Non-African Americans 35 (> 60)
[2016-08-04 06:11] LABS: Alanine Aminotransferase < 6 Units/L (0-55)
--- NOTE | 2016-08-04 09:42 | Internal Med Progress Note ---
Date of Encounter: 08/04/16 Time of Encounter: 09:39 - Assessment and plan (1) Sepsis Current Visit: Yes Status: Acute Assessment and plan: Noted that patient has elevated white blood cell count. Patient's creatinine has worsened. I trended the creatinine back to 6 months. this is his worst creatinine ever. (1.84). Patient has a foul smelly urine. Plan - plan cultures done. -Started on Zosyn. -Started with the renal dose. -Close monitoring and repeat labs tomorrow. Qualifiers: Sepsis type: sepsis due to unspecified organism Qualified Code(s): A41.9 - Sepsis, unspecified organism (2) Hematuria Current Visit: Yes Status: Acute Assessment and plan: Patient has a new onset of hematuria. Folley catheter was placed yesterday. There was a mild hematuria after that but noted that patient's urine was clean and no hematuria noted. Since this morning there is persistent hematuria. Plan: 1. Urology opinion. We will monitor his CBC 08/02/2016. Noted that [address] way Bladder irrigation is going on. Hematuria resolved. Appreciated efforts from urology. 08/03/2016 Hematuria resolved Noted that urology signed off. Will follow with urology recommendation. (3) CVA (cerebral vascular accident) Current Visit: Yes Status: Acute Assessment and plan: admitted for expressive aphasia from [facility] CT Head : no new infarct or bleed. ECHO: Pending. Carotid doppler : Pending. has advanced dementia and [facility] resident. plan: complete the work up no major invasive procedures. likely back to [facility] 07/31/2016. Neurological on the board. We will follow the recommendations. 08/01/2016. Patient is unable to speak and he sentences. Neurology signed off. 08/02/2016 Neurology signed off. Will be back to long term in 1-2 days. 08/03/2016. Patient will likely go back to long term tomorrow. Qualifiers: CVA mechanism: unspecified Qualified Code(s): I63.9 - Cerebral infarction, unspecified (4) HTN (hypertension) Current Visit: Yes Status: Acute Assessment and plan: will keep above 170 in view of new aphasia, possible infarct Unable to get MRI due to pacemaker. Qualifiers: Hypertension type: essential hypertension Qualified Code(s): I10 - Essential (primary) hypertension (5) Parkinson disease Current Visit: Yes Status: Acute Assessment and plan: resume home meds. (6) CKD (chronic kidney disease) stage 3, GFR 30-59 ml/min Current Visit: Yes Status: Acute Assessment and plan: no NSAIDs close monitoring labs in AM 08/03/2016 Noted a mild elevation in creatinine. We will give him IV fluids. We will monitor very closely. (7) Expressive aphasia Current Visit: Yes Status: Acute Assessment and plan: likely CVA Will repeat CT head tomorrow. (8) DVT prophylaxis Current Visit: Yes Status: Acute Assessment and plan: SCD Medical Decision Making : In spite of appropriate meds still has risk of worsening as he has advanced age and multiple comorbidities. - Subjective Interval history: seen and examined. patient is not communicating does not appeared to be in stress. examined him at ECHO room. 07/31/2016. Patient seen and examined. We are unable to speak any words. No family at bedside. Noted that there is a orange colored urine in the urine bag. We will keep a close eye. if bleeding gets worse then we will get urology for further evaluation. 08/01/2016. Patient seen and examined. Patient is unable to speak any words. No family at bedside. Patient is a persistent hematuria. We will get opinion from urology. 08/02/2016 Patient seen and examined. Chart is reviewed. Family at bedside. Noted that patient has a 3-way bladder Catheter irrigation is going on. Hematuria is resolved. 08/03/2016 Patient seen and examined. Chart reviewed. Patient is unable to communicate. No family at bedside. 08/04/2016 Patient seen and examined. Chart reviewed. Patient is unable to communicate. Noted that patient's urine has a foul smelly odor. - Constitutional Vitals: Temp Pulse Resp BP Pulse Ox 97.8 F 76 19 178/79 97 08/04/16 07:00 08/04/16 07:00 08/04/16 07:00 08/04/16 07:00 08/04/16 07:00 General appearance: Present: A&O X 0 - Head Head exam: Present: atraumatic, normocephalic - Eye Eye exam: Present: PERRL, conjuntiva pink, sclera anicteric Pupils: Present: PERRL - Neck Neck exam general surgery: Present: supple, trachea midline. Absent: lymphadenopathy - Respiratory Respiratory exam: Present: CTAB. Absent: accessory muscle use, rales, rhonchi, wheezes - Cardiovascular Cardiovascular exam: Present: RRR, +S1, +S2. Absent: diastolic murmur, gallop, rubs, systolic murmur - GI/Abdominal GI/Abdominal exam: Present: normal bowel sounds, soft, no peritoneal signs. Absent: distended, tenderness - Extremities Exam Extremities exam: Present: warm, radial pulses palpable and symetrical. Absent : calf tenderness, cyanotic, pedal edema - Neurological Exam Neurological exam: Present: CN II-XII intact, oriented X3, no focal deficits. Absent: pronater drift, facial droop, speech deficit - Skin Skin exam: Present: dry, intact Internal Medicine: Result - Labs CBC & Chem 7: 08/04/16 05:10 08/04/16 05:42 Labs: Short CBC 08/04/16 Range/Units 05:10 WBC 13.0 H (4.3-11.1) K/mcL Hgb 13.0 (12.9-16.9) g/dL Hct 39.6 (37.5-50.1) % Plt Count 198 (140-400) K/mcL Neutrophils # 9.7 H (1.6-8.9) K/mcL BMP 08/04/16 05:42 Sodium 144 Potassium 3.9 Chloride 109 Carbon Dioxide 22 BUN 30 H Creatinine 1.84 H Glucose 132 H Calcium 9.6 Liver Function 08/04/16 Range/Units 05:42 Total Bilirubin 0.8 (0.2-1.2) mg/dL AST 16 (5-34) Units/L ALT < 6 (0-55) Units/L Alkaline Phosphatase 70 (38-126) Units/L Albumin 3.0 L (3.5-5.0) g/dL - ABG Interpretation ABG results: PT/INR, D-dimer PT 11.6 Seconds (9.4-12.1) 07/29/16 18:04 Consult Discharge Plan - Plan Instructions: Parkinson's Disease (DC), Parkinson's Disease (GEN), Ischemic Stroke (DC), Ischemic Stroke (GEN), Chronic Hypertension (DC) Referrals: Michel Stevens [Primary Care Provider] -
[2016-08-04] MEDS: Furosemide 20 MG TABLET PO SCH (09:57)
[2016-08-04] MEDS: Sennosides 8.6 MG TABLET PO SCH ×2 (09:57→20:40)
[2016-08-04] MEDS: *HR* HYDROmorphone (PF) 1 MG/ML SYRINGE IVP PRN (09:58)
[2016-08-04] MEDS: Metoprolol XL (24 HR) Succ 50 MG TAB.ER.24H PO SCH (09:58)
[2016-08-04] MEDS: Piperacillin/Tazobactam 3.375 GM in D5% in Water (Mini-Bag+) 100 ML IVPB SCH ×2 (09:58→17:02)
[2016-08-04] MEDS: Aspirin Enteric Coated 81 MG Tablet PO SCH (09:58)
[2016-08-04] MEDS: Carbidopa/Levodopa 25/100 TABLET PO SCH ×2 (09:58→20:41)
[2016-08-04] MEDS: amLODIPine 5 MG TABLET PO SCH (10:00)
[2016-08-04] MEDS: Finasteride 5 MG TABLET PO SCH (10:00)
[2016-08-04 13:00] LABS: Adenovirus Not Detected (Not Detect); Bordetella Pertussis Not Detected (Not Detect); Chlamydophila pneumoniae Not Detected (Not Detect); Coronavirus 229E Not Detected (Not Detect); Coronavirus HKU1 Not Detected (Not Detect); Coronavirus NL63 Not Detected (Not Detect); Coronavirus OC43 Not Detected (Not Detect); Human Metapneumovirus Not Detected (Not Detect); Human Rhinovirus/Enterovirus Not Detected (Not Detect); Influenza A Subtype 2009 H1 Not Detected (Not Detect); Influenza A Untypeable Not Detected (Not Detect); Influenza B Not Detected (Not Detect); Mycoplasma pneumoniae Not Detected (Not Detect); Parainfluenza Virus 1 Not Detected (Not Detect); Parainfluenza Virus 2 Not Detected (Not Detect); Parainfluenza Virus 3 Not Detected (Not Detect); Parainfluenza Virus 4 Not Detected (Not Detect); Respiratory Syncytial Virus Not Detected (Not Detect)
[2016-08-04] MEDS: Melatonin 3 MG TABLET PO SCH (20:41)
[2016-08-05] MEDS: Piperacillin/Tazobactam 3.375 GM in D5% in Water (Mini-Bag+) 100 ML IVPB SCH ×3 (02:20→17:49)
[2016-08-05] MEDS: 0.9 % Sodium Chloride 1,000 ML IVC SCH ×2 (10:35→21:11)
[2016-08-05] MEDS: amLODIPine 5 MG TABLET PO SCH (10:36)
[2016-08-05] MEDS: Carbidopa/Levodopa 25/100 TABLET PO SCH ×2 (10:36→20:45)
[2016-08-05] MEDS: Metoprolol XL (24 HR) Succ 50 MG TAB.ER.24H PO SCH (10:36)
[2016-08-05] MEDS: Furosemide 20 MG TABLET PO SCH (10:36)
[2016-08-05] MEDS: Sennosides 8.6 MG TABLET PO SCH ×2 (10:36→20:46)
[2016-08-05] MEDS: Aspirin Enteric Coated 81 MG Tablet PO SCH (10:36)
[2016-08-05] MEDS: Finasteride 5 MG TABLET PO SCH (10:37)
[2016-08-05] MEDS: *HR* HYDROmorphone (PF) 1 MG/ML SYRINGE IVP PRN (10:52)
--- NOTE | 2016-08-05 14:30 | Internal Med Progress Note ---
<Pieter Fry - Last Filed: 08/05/16 15:22> Date of Encounter: 08/05/16 Time of Encounter: 09:00 - Assessment and plan (1) Sepsis Current Visit: Yes Status: Acute Assessment and plan: source of infection likely UTI prelim urine culture grew gram negative rods. awaiting final urine culture. patient had grown pseudomonas in his urine in the past. Zosyn day 2, being renally dosed. will closely monitor and repeat labs tomorrow. anticipate discharge soon with full course of antibiotics and perez catheter. Upon D/C discontinue Nuedexta, decrease zoloft dose to 100mg. Qualifiers: Sepsis type: sepsis due to unspecified organism Qualified Code(s): A41.9 - Sepsis, unspecified organism (2) CVA (cerebral vascular accident) Current Visit: Yes Status: Acute Assessment and plan: Patient lives in [facility]. He was admitted to rule out CVA, and had epressive aphasia and confusion. CT head was negative for intracranial hemorrhage or mass effect. Showed atrophy and severe white matter changes consistent with chronic small vessel ischemic disease. Patient was not a candidate for TPA, likely TIA. Patient could not have MRI head done due to pacemaker. Repeat CT scan showed no acute changes. Echo showed low-normal LV systolic function, moderate increased LV wall thickness, atypical septal motion, normal RV size and function, borderline evidence of mild pulmonary hypertension, no evidence of PFO with saline contrast. Carotid duplex showed bilateral non stenotic plaque in carotid system. patient was evaluated by neurology, they recommended continued medical management with ASA and statin. Qualifiers: CVA mechanism: unspecified Qualified Code(s): I63.9 - Cerebral infarction, unspecified (3) Hematuria Current Visit: Yes Status: Acute Assessment and plan: patient had new onset persistent hematuria during hospital stay. urology was consulted, and recommended leaving perez catheter in place for one week. Perez catheter was placed on 07/31/16. (4) HTN (hypertension) Current Visit: Yes Status: Acute Assessment and plan: BP within appropriate limits at this time. keep BP above 170 due to possible infarct. continue norvasc, Toprol XL Qualifiers: Hypertension type: essential hypertension Qualified Code(s): I10 - Essential (primary) hypertension (5) Parkinson disease Current Visit: Yes Status: Acute Assessment and plan: continue Sinemet (6) CKD (chronic kidney disease) stage 3, GFR 30-59 ml/min Current Visit: Yes Status: Acute Assessment and plan: baseline Cr around 1.4 Continue to monitor renal function. IV fluids 100ml/hr. (7) Expressive aphasia Current Visit: Yes Status: Acute Assessment and plan: likely due to CVA. Patient had been evaluated by neurology, recommended medical management and continued monitoring. (8) DVT prophylaxis Current Visit: Yes Status: Acute Assessment and plan: EPCD - Subjective Interval history: 85 year old male evaluated at bedside. He would not respond to questions, and rarely follows commands. He is alert, laying in bed. - Constitutional Vitals: Temp Pulse Resp BP Pulse Ox 98.4 F 61 13 164/81 95 08/05/16 11:17 08/05/16 11:17 08/05/16 11:17 08/05/16 11:17 08/05/16 11:17 General appearance: Absent: answers questions appropriately - Head Head exam: Present: atraumatic, normocephalic - Neck Neck exam general surgery: Present: supple, trachea midline - Respiratory Respiratory exam: Present: decreased breath sounds - Cardiovascular Cardiovascular exam: Present: systolic murmur (grade 2) - GI/Abdominal GI/Abdominal exam: Present: normal bowel sounds, tenderness - Extremities Exam Extremities exam: Absent: cyanotic, pedal edema - Neurological Exam Neurological exam: Present: alert. Absent: strengths equal and symetr throughout (decreased muscle strength on right arm. patient does not follow commands or answer questions. ) Internal Medicine: Result - Labs CBC & Chem 7: 08/04/16 05:10 08/04/16 05:42 - ABG Interpretation ABG results: PT/INR, D-dimer PT 11.6 Seconds (9.4-12.1) 07/29/16 18:04 Consult Discharge Plan - Plan Instructions: Parkinson's Disease (DC), Parkinson's Disease (GEN), Ischemic Stroke (DC), Ischemic Stroke (GEN), Chronic Hypertension (DC) Referrals: Tad Brandon MD [Partnered Physician] - 08/13/16 1:00 pm Michel Stevens [Primary Care Provider] - <Gabino Pelletier - Last Filed: 08/05/16 23:23> Date of Encounter: 08/05/16 - Assessment and plan (1) Expressive aphasia Current Visit: Yes Status: Acute (2) CVA (cerebral vascular accident) Current Visit: Yes Status: Acute Qualifiers: CVA mechanism: embolism Precerebral and cerebral artery: middle cerebral artery Laterality of affected vessel: unspecified Qualified Code(s): 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 (3) HTN (hypertension) Current Visit: Yes Status: Acute Qualifiers: Hypertension type: essential hypertension Qualified Code(s): I10 - Essential (primary) hypertension (4) Parkinson disease Current Visit: Yes Status: Acute (5) Sepsis Current Visit: Yes Status: Acute Qualifiers: Sepsis type: sepsis due to unspecified organism Qualified Code(s): A41.9 - Sepsis, unspecified organism (6) Hematuria Current Visit: Yes Status: Acute - Constitutional Vitals: Temp Pulse Resp BP Pulse Ox 98.4 F 60 18 145/77 96 08/05/16 19:00 08/05/16 19:00 08/05/16 19:00 08/05/16 19:00 08/05/16 20:57 Internal Medicine: Result - Labs CBC & Chem 7: 08/04/16 05:10 08/04/16 05:42 - ABG Interpretation ABG results: PT/INR, D-dimer PT 11.6 Seconds (9.4-12.1) 07/29/16 18:04 - Attending Attestation I examined this patient and my medical decision-making was reviewed with the Resident Physician on 08/05/16. I agree with the documented findings, disposition and treatment plan as described except to the extent set forth below. Mr. Albarran is currently admitted for acute expressive aphasia and presumed CVA. He is moderate to high risk due to potential for worsening neurologic status. Mr. Albarran is resting comfortably. He has no new issues at this time. He does not answer me at this time. Exam Arousable Heart irreg Lungs with scattered rhonchi Abd soft I/P 1. Expressive aphasia 2. CVA Further diagnoses and plan as above.
--- NOTE | 2016-08-05 18:00 | Discharge Summary ---
<Pieter Fry - Last Filed: 08/06/16 08:45> Date of Encounter: 08/06/16 Time of Encounter: 08:51 - Discharge Diagnosis (1) CVA (cerebral vascular accident) Priority: Primary Status: Acute Qualifiers: CVA mechanism: embolism Precerebral and cerebral artery: middle cerebral artery Laterality of affected vessel: unspecified Qualified Code(s): 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 (2) Sepsis Priority: Secondary Status: Acute Qualifiers: Sepsis type: sepsis due to unspecified organism Qualified Code(s): A41.9 - Sepsis, unspecified organism (3) Hematuria Priority: Secondary Status: Acute (4) HTN (hypertension) Priority: Secondary Status: Acute Qualifiers: Hypertension type: essential hypertension Qualified Code(s): I10 - Essential (primary) hypertension (5) Parkinson disease Priority: Secondary Status: Acute (6) CKD (chronic kidney disease) stage 3, GFR 30-59 ml/min Priority: Secondary Status: Acute (7) Expressive aphasia Priority: Secondary Status: Acute (8) DVT prophylaxis Priority: Secondary Status: Acute - Discharge Medications Prescriptions: Aspirin Enteric Coated [Aspirin EC] 81 mg PO DAILY #30 tablet. Atorvastatin [Lipitor] 20 mg PO HS #30 tablet Levofloxacin [Levaquin] 750 mg PO Q48H #3 tablet Sertraline [Zoloft] 100 mg PO DAILY #30 tablet Tamsulosin [Flomax] 0.4 mg PO 1800 #30 capsule Home Medications: Amlodipine [Amlodipine Besylate] 10 mg PO DAILY 03/31/15 [History] Carbidopa/Levodopa 25/100 [Sinemet 25/100] 1 each PO BID 03/31/15 [History] Cholecalciferol (Vitamin D3) [Vitamin D] 1,000 unit PO BID 03/31/15 [History] Finasteride [Proscar] 5 mg PO DAILY 03/31/15 [History] Lactulose 20 gm PO QAM 03/31/15 [History] Melatonin [Melatin] 3 mg PO HS 03/31/15 [History] Memantine HCl [Namenda Xr] 7 mg PO DAILY 03/31/15 [History] Metoprolol XL (24 HR) Succ [Toprol XL] 50 mg PO DAILY 03/31/15 [History] Omeprazole [PriLOSEC] 20 mg PO DAILY 03/31/15 [History] Probenecid [Benemid] 500 mg PO BID 03/31/15 [History] Vitamin B Complex [B Complex] 1 each PO DAILY 03/31/15 [History] Acetaminophen [Tylenol] 650 mg PO Q8H PRN 07/29/16 [History] Bisacodyl [Dulcolax] 10 mg RC DAILY PRN 07/29/16 [History] Furosemide [Lasix] 20 mg PO DAILY 07/29/16 [History] LORazepam [Ativan] 1 mg PO BID PRN 07/29/16 [History] Magnesium Hydroxide [Milk of Magnesia] 400 mg PO DAILY PRN 07/29/16 [History] Nitroglycerin [Nitrostat] 0.4 mg SL Q5M PRN 07/29/16 [History] Potassium Chloride [K-Tab ER] 20 meq PO DAILY 07/29/16 [History] Sennosides [Senna] 8.6 mg PO BID 07/29/16 [History] Aspirin Enteric Coated [Aspirin EC] 81 mg PO DAILY #30 tablet. 08/06/16 [Rx] Atorvastatin [Lipitor] 20 mg PO HS #30 tablet 08/06/16 [Rx] Levofloxacin [Levaquin] 750 mg PO Q48H #3 tablet 08/06/16 [Rx] Sertraline [Zoloft] 100 mg PO DAILY #30 tablet 08/06/16 [Rx] Tamsulosin [Flomax] 0.4 mg PO 1800 #30 capsule 08/06/16 [Rx] Allergies/Adverse Reactions: Allergies allopurinol Allergy (Verified 03/31/15 14:23) See Comments Date of admission: 07/29/16 21:51 Primary care physician: Michel Stevens Consults: 07/29/16 22:06 Consult to Neurology [CONS] Routine Consulting Provider: Neu[facility] Reason for Consult: expressive apashia Time Notified: 22:06 Call Completed: No 07/29/16 22:07 Consult to Occupational Therapy [CONS] Routine Comment: Evaluate, develop and implement POC Consult to Physical Therapy [CONS] Routine Comment: Evaluate, develop and implement POC Consult to Speech Therapy [CONS] Routine Comment: Evaluate, develop and implement POC Reason for Consult: swallow eval Time Notified: 22:07 Call Completed: No 07/31/16 09:37 Consult to Production Lead [CONS] Routine Reason for SW Consult: Return to [facility] 08/01/16 16:37 Consult to Urology [CONS] Routine Consulting Provider: Kylee Stahl Reason for Consult: hematuria Call Completed: Yes Discharging clinician: Pieter Fry Anticipated date of discharge: 08/06/16 - Patient Status Disposition: Transfer Inpatient Rehab Fac Condition: Fair Functional capacity at discharge: bed bound Overall status at discharge: patient is not back to baseline - Discharge Instructions Instructions: Aspirin (By mouth), Sertraline (By mouth), Atorvastatin (By mouth ), Levofloxacin (By mouth), Tamsulosin (By mouth), Parkinson's Disease (DC), Parkinson's Disease (GEN), Sepsis (DC), Ischemic Stroke (DC), Ischemic Stroke ( GEN), Chronic Hypertension (DC) Follow Up With: Tad Brandon MD [Partnered Physician] - 08/13/16 1:00 pm Michel Stevens [Primary Care Provider] - John Burch MD [Partnered Physician] - Dylan Kingsley MD [Partnered Physician] - - Diet and Activity Activity: as per physical therapy Diet: low fat, low cholesterol, other (advanced soft diet, meds in puree, ensure plus TID) Hospital course: Mr. Albarran is a 85 year old male with PMHx of CKD3, HTN, CAD with stent, parkinsons. Patient is a resident of [facility], was admitted for stroke workup. Patient was unable to talk at the senior living. Upon admission, patient had extensive workup. CT head was negative for intracranial hemorrhage or mass effect, but showed atrophy and severe white matter changes consistent with chronic small vessel ischemic disease. Patient was not a candidate for TPA. Patient unfortunately could not have an MRI because of his pacemaker. repeat CT scan showed no acute changes. Echo showed low-normal LV systolic function, moderate increased LV wall thickness, athypical septal mosion, normal RV size and function, boderline evidence of mild pulmonary HTN, no evidence of PFO. Carotid duplex showed bilateral non stenotic plaque in carotid system. patient was evaluated by neurology, and they recommended continued medical management with ASA and statin. During his hospital stay, patient developed hematuria that was persistent. consult to urology was made, and they recommended leaving a perez catheter in place for 1 week. Perez was placed . Patient was diagnosed with sepsis during his hospital stay as well. Source of infection is likely from UTI. Urine culture grew gram negative rods (he has grown pseudomonas in his urine in the past). Patient was started on zosyn, and he will be discharged home on oral levaquin. blood cultures showed no growth. Patient remained stable during his hospital stay and had no acute events. He does suffer residual effects from his CVA and will need aggressive physical and speech therapy. Plan: Take all medications as tolerated Complete course of levaquin. Take perez catheter out on 08/07/16 decreased dose of zoloft to 100mg daily due to hematuria Follow up with PCP within one week of discharge Follow up with neurology and urology. Discontinued Nuedexta. - Time Spent with Patient Total time spent providing and/or coordinating discharge services: - Constitutional Vitals: Temp Pulse Resp BP Pulse Ox 98.4 F 60 15 160/75 97 08/05/16 11:17 08/05/16 15:00 08/05/16 15:00 08/05/16 15:00 08/05/16 15:00 General appearance: Present: no acute distress. Absent: answers questions appropriately Exam: alert, does not respond to questions, follows commands. - Head Head exam: Present: atraumatic, normocephalic - Neck Neck exam general surgery: Present: supple, trachea midline - Respiratory Respiratory exam: Present: decreased breath sounds - Cardiovascular Cardiovascular exam: Present: systolic murmur (grade 2) - GI/Abdominal GI/Abdominal exam: Present: firm, normal bowel sounds. Absent: tenderness - Extremities Exam Extremities exam: Absent: cyanotic, pedal edema - Neurological Exam Neurological exam: Present: alert, speech deficit Additional comments: patient still has residual expressive aphasia. - Psychiatric Psychiatric exam: Present: anxious <Gabino Pelletier - Last Filed: 08/06/16 16:12> Date of Encounter: 08/06/16 - Discharge Diagnosis (1) CVA (cerebral vascular accident) Priority: Primary Status: Acute Qualifiers: CVA mechanism: embolism Precerebral and cerebral artery: middle cerebral artery Laterality of affected vessel: unspecified Qualified Code(s): 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 (2) Expressive aphasia Priority: Primary Status: Acute (3) HTN (hypertension) Status: Acute Qualifiers: Hypertension type: essential hypertension Qualified Code(s): I10 - Essential (primary) hypertension (4) Parkinson disease Status: Acute (5) Sepsis Status: Acute Qualifiers: Sepsis type: sepsis due to unspecified organism Qualified Code(s): A41.9 - Sepsis, unspecified organism (6) Hematuria Status: Acute (7) UTI (urinary tract infection) Priority: Secondary Status: Acute Comments: gram neg bacilli - final cx pending. Qualifiers: Urinary tract infection type: acute cystitis Hematuria presence: with hematuria Qualified Code(s): N30.01 - Acute cystitis with hematuria - Notes to Outpatient Provider Urine culture final results pending. Needs perez out in about a week. If retention recurs needs urology appt. Date of admission: 07/29/16 21:51 Primary care physician: Michel Stevens Consults: 07/29/16 22:06 Consult to Neurology [CONS] Routine Consulting Provider: Neurology [facility] Reason for Consult: expressive apashia Time Notified: 22:06 Call Completed: No 07/29/16 22:07 Consult to Occupational Therapy [CONS] Routine Comment: Evaluate, develop and implement POC Consult to Physical Therapy [CONS] Routine Comment: Evaluate, develop and implement POC Consult to Speech Therapy [CONS] Routine Comment: Evaluate, develop and implement POC Reason for Consult: swallow eval Time Notified: 22:07 Call Completed: No 07/31/16 09:37 Consult to Production Lead [CONS] Routine Reason for SW Consult: Return to [facility] 08/01/16 16:37 Consult to Urology [CONS] Routine Consulting Provider: [facility] Reason for Consult: hematuria Call Completed: Yes Hospital course: Mr. Albarran is a 85 year old male - Time Spent with Patient Total time spent providing and/or coordinating discharge services: 39min - Constitutional Vitals: Temp Pulse Resp BP Pulse Ox 97.4 F L 60 15 159/80 99 08/06/16 06:00 08/06/16 06:00 08/06/16 06:00 08/06/16 06:15 08/06/16 06:00 - Attending Attestation I examined this patient and my medical decision-making was reviewed with the Resident Physician on08/06/16. I agree with the documented findings, disposition and treatment plan as described except to the extent set forth below. Mr. Albarran is more alert today but does not answer questions appropriately or follow commands. He denies pain at this time. Exam Alert. Comfortable Heart reg Lungs clear Plan D/C today. Follow up with neurology Final culture of urine is pending - d/c on PO Levaquin. Perez needs taken out in a week - if has retention needs urology follow up.
[2016-08-05] MEDS: Melatonin 3 MG TABLET PO SCH (20:46)
[2016-08-06] MEDS: Piperacillin/Tazobactam 3.375 GM in D5% in Water (Mini-Bag+) 100 ML IVPB SCH ×2 (01:58→11:17)
[2016-08-06 05:02] LABS: Basophils % 0.4 %; Eosinophils # 0.5 K/mcL (0.0-0.6); Eosinophils % 5.4 %; Hematocrit 36.9 % (37.5-50.1); Immature Granulocytes % 0.2 % (0-4); Lymphocytes # 1.3 K/mcL (0.6-4.6); Lymphocytes % 13.4 %; Mean Corpuscular HGB Conc 32.5 g/dL (31.6-35.5); Mean Corpuscular Hemoglobin 29.9 pg (28.0-33.3); Mean Platelet Volume 10.2 fL (9.4-12.4); Monocytes # 0.8 K/mcL (0.0-1.3); Monocytes % 8.8 %; Neutrophils # 6.7 K/mcL (1.6-8.9); Platelet Count 195 K/mcL (140-400); Red Blood Count 4.01 M/mcL (4.19-5.50); Red Cell Distribution Width 15.1 % (11.5-14.5); Segmented Neutrophils % 71.8 %
[2016-08-06 05:12] LABS: Calcium 8.9 mg/dL (8.6-10.8); Potassium 3.7 mEq/L (3.5-4.5)
[2016-08-06 06:16] VITALS: BP 159/80
[2016-08-06] MEDS: Metoprolol XL (24 HR) Succ 50 MG TAB.ER.24H PO SCH (08:15)
[2016-08-06] MEDS: amLODIPine 5 MG TABLET PO SCH (08:16)
[2016-08-06] MEDS: Carbidopa/Levodopa 25/100 TABLET PO SCH (08:16)
[2016-08-06] MEDS: Finasteride 5 MG TABLET PO SCH (08:16)
[2016-08-06] MEDS: Aspirin Enteric Coated 81 MG Tablet PO SCH (08:16)
[2016-08-06] MEDS: Furosemide 20 MG TABLET PO SCH (08:16)
[2016-08-06] MEDS: Sennosides 8.6 MG TABLET PO SCH (08:16)
--- NOTE | 2016-08-06 09:56 | Physician Discharge Referral ---
ExtendedCare Referral Info Transfer To: inpatient rehab. Provider in Charge after Transfer: PCP Institutional Level of Care: Skilled - Diagnosis (1) CVA (cerebral vascular accident) Priority: Primary Status: Acute (2) Sepsis Priority: Secondary Status: Acute (3) Hematuria Priority: Secondary Status: Acute (4) HTN (hypertension) Priority: Secondary Status: Acute (5) Parkinson disease Priority: Secondary Status: Acute (6) CKD (chronic kidney disease) stage 3, GFR 30-59 ml/min Priority: Secondary Status: Acute (7) Expressive aphasia Priority: Secondary Status: Acute (8) DVT prophylaxis Priority: Secondary Status: Acute Prognosis: Fair - Transfer Medications Prescriptions: Aspirin Enteric Coated [Aspirin EC] 81 mg PO DAILY #30 tablet. Atorvastatin [Lipitor] 20 mg PO HS #30 tablet Levofloxacin [Levaquin] 750 mg PO Q48H #3 tablet Sertraline [Zoloft] 100 mg PO DAILY #30 tablet Tamsulosin [Flomax] 0.4 mg PO 1800 #30 capsule Home Medications: Amlodipine [Amlodipine Besylate] 10 mg PO DAILY 03/31/15 [History] Carbidopa/Levodopa 25/100 [Sinemet 25/100] 1 each PO BID 03/31/15 [History] Cholecalciferol (Vitamin D3) [Vitamin D] 1,000 unit PO BID 03/31/15 [History] Finasteride [Proscar] 5 mg PO DAILY 03/31/15 [History] Lactulose 20 gm PO QAM 03/31/15 [History] Melatonin [Melatin] 3 mg PO HS 03/31/15 [History] Memantine HCl [Namenda Xr] 7 mg PO DAILY 03/31/15 [History] Metoprolol XL (24 HR) Succ [Toprol XL] 50 mg PO DAILY 03/31/15 [History] Omeprazole [PriLOSEC] 20 mg PO DAILY 03/31/15 [History] Probenecid [Benemid] 500 mg PO BID 03/31/15 [History] Vitamin B Complex [B Complex] 1 each PO DAILY 03/31/15 [History] Acetaminophen [Tylenol] 650 mg PO Q8H PRN 07/29/16 [History] Bisacodyl [Dulcolax] 10 mg RC DAILY PRN 07/29/16 [History] Furosemide [Lasix] 20 mg PO DAILY 07/29/16 [History] LORazepam [Ativan] 1 mg PO BID PRN 07/29/16 [History] Magnesium Hydroxide [Milk of Magnesia] 400 mg PO DAILY PRN 07/29/16 [History] Nitroglycerin [Nitrostat] 0.4 mg SL Q5M PRN 07/29/16 [History] Potassium Chloride [K-Tab ER] 20 meq PO DAILY 07/29/16 [History] Sennosides [Senna] 8.6 mg PO BID 07/29/16 [History] Aspirin Enteric Coated [Aspirin EC] 81 mg PO DAILY #30 tablet. 08/06/16 [Rx] Atorvastatin [Lipitor] 20 mg PO HS #30 tablet 08/06/16 [Rx] Levofloxacin [Levaquin] 750 mg PO Q48H #3 tablet 08/06/16 [Rx] Sertraline [Zoloft] 100 mg PO DAILY #30 tablet 08/06/16 [Rx] Tamsulosin [Flomax] 0.4 mg PO 1800 #30 capsule 08/06/16 [Rx] Allergies/Adverse Reactions: Allergies allopurinol Allergy (Verified 03/31/15 14:23) See Comments - Respiratory Orders Smoking Cessation: Smoking cessation has been advised. For more information, call the [place] Tobacco Quit Line at 2-881-WVFB-NOW. - Ancillary Orders May use pressure relief devices daily prn - Mobility Orders Other (as per rehab) - Rehabiliation Orders Rehab Potential: Fair Rehab Orders: ROM Exercises, Evaluation for Physical Therapy, Evaluation for Occupational Therapy, Evaluation for Speech Therapy - Treatments Skin tear care topically daily PRN per policy, May check for fecal impaction rectally daily PRN - Diet Orders Mechanical Soft (meds in applesauce.), Cardiac CERTIFICATION: I certify that the transfer of the above named patient to an Extended Care Facility is necessary for the continuing treatment of the diagnosis listed. The above information is true and accurate reflection of patient's current condition. Confidential - Redisclosure prohibited without a patient's written consent.
== END 2016-08-06 14:50 | DRG 64 ==
LOC: EMEROO 17:42 → 2NENU 17:42 → SUATTDRO 21:51
PROVIDERS: ADMIT Nurse Practitioner Family; ATTEND Internal Medicine

== ENCOUNTER 2017-08-28 11:04 | Inpatient (IN) ==
--- NOTE | 2017-08-28 11:50 | Emergency Department Note ---
Disposition Clinical Impression: Altered consciousness, Melena, Occult blood in stools, Acute kidney injury Anemia Qualifiers: Anemia type: unspecified type Qualified Code(s): D64.9 - Anemia, unspecified Disposition: Admitted As Inpatient Condition: Fair General Adult HPI - General Chief complaint: ED Altered Mental Status Stated complaint: Lethargic Time Seen by Provider: 08/28/17 11:23 Source: family, EMS Limitations: altered mental status - History of Present Illness Pain Scale: 0 - Related Data Home Medications Medication Instructions Recorded Confirmed Amlodipine [Amlodipine Besylate] 10 mg PO DAILY 03/31/15 08/28/17 Carbidopa/Levodopa 25/100 [Sinemet 1 each PO BID 03/31/15 08/28/17 25/100] Cholecalciferol (Vitamin D3) 1,000 unit PO BID 03/31/15 08/28/17 [Vitamin D] Finasteride [Proscar] 5 mg PO DAILY 03/31/15 08/28/17 Lactulose 20 gm PO QAM 03/31/15 08/28/17 Melatonin [Melatin] 3 mg PO HS 03/31/15 08/28/17 Memantine HCl [Namenda Xr] 7 mg PO DAILY 03/31/15 08/28/17 Metoprolol XL (24 HR) Succ [Toprol 50 mg PO DAILY 03/31/15 08/28/17 XL] Probenecid [Benemid] 500 mg PO BID 03/31/15 08/28/17 Vitamin B Complex [B Complex] 1 each PO DAILY 03/31/15 08/28/17 Acetaminophen [Tylenol] 650 mg PO Q8H PRN 07/29/16 08/28/17 Bisacodyl [Dulcolax] 10 mg RC DAILY PRN 07/29/16 08/28/17 Furosemide [Lasix] 20 mg PO DAILY 07/29/16 08/28/17 LORazepam [Ativan] 1 mg PO BID PRN 07/29/16 08/28/17 Magnesium Hydroxide [Milk of 400 mg PO DAILY PRN 07/29/16 08/28/17 Magnesia] Nitroglycerin [Nitrostat] 0.4 mg SL Q5M PRN 07/29/16 08/28/17 Potassium Chloride [K-Tab ER] 20 meq PO DAILY 07/29/16 08/28/17 Sennosides [Senna] 8.6 mg PO BID 07/29/16 08/28/17 Sertraline [Zoloft] 25 mg PO QPM 08/28/17 08/28/17 Sertraline [Zoloft] 50 mg PO QAM 08/28/17 08/28/17 Previous Rx's Medication Instructions Recorded Aspirin Enteric Coated [Aspirin EC] 81 mg PO DAILY #30 tablet. 08/06/16 Atorvastatin [Lipitor] 20 mg PO HS #30 tablet 08/06/16 Tamsulosin [Flomax] 0.4 mg PO 1800 #30 capsule 08/06/16 Allergies Allergy/AdvReac Type Severity Reaction Status Date / Time allopurinol Allergy See Verified 03/31/15 14:23 Comments Past Medical History - Past Medical History Medical history: Reports: CVA, dementia, hyperlipidemia, hypertension, renal disease Surgical history: Reports: AICD Psychiatric history: Reports: depression - Social History Smoking Status: Unknown if ever smoked Smokeless Tobacco Status: No Alcohol use: Reports: none Drug use: Reports: none Physical Exam - General Limitations: altered mental status General appearance: lethargic Course Vital Signs Temperature 97.7 F 08/28/17 11:06 Pulse Rate 77 08/28/17 11:06 Respiratory Rate 18 08/28/17 11:06 Blood Pressure 134/69 08/28/17 11:06 O2 Sat by Pulse Oximetry 100 08/28/17 11:06 Temperature 98.4 F 08/28/17 16:33 Pulse Rate 69 08/28/17 16:33 Respiratory Rate 18 08/28/17 16:33 Blood Pressure 148/18 08/28/17 16:33 O2 Sat by Pulse Oximetry 95 08/28/17 16:33 Oxygen Delivery Oxygen Delivery Nasal Cannula Medical Decision Making - Lab Data Result diagrams: 08/28/17 11:33 08/28/17 11:33 Lab Results 08/28/17 08/28/17 08/28/17 Range/Units 11:33 11:33 11:34 WBC 13.0 H (4.3-11.1) K/mcL RBC 3.13 L (4.19-5.50) M/mcL Hgb 7.6 L (12.9-16.9) g/dL Hct 25.9 L (37.5-50.1) % MCV 82.7 L (83.0-100.0) fL MCH 24.3 L (28.0-33.3) pg MCHC 29.3 L (31.6-35.5) g/dL RDW 20.4 H (11.5-14.5) % Plt Count 331 (140-400) K/mcL MPV 9.8 (9.4-12.4) fL Immature Gran % 0.4 (0-4) % Seg Neutrophils % 79.7 % Lymphocytes % 11.2 % Monocytes % 7.4 % Eosinophils % 0.9 % Basophils % 0.4 % Neutrophils # 10.4 H (1.6-8.9) K/mcL Lymphocytes # 1.5 (0.6-4.6) K/mcL Monocytes # 1.0 (0.0-1.3) K/mcL Eosinophils # 0.1 (0.0-0.6) K/mcL Basophils # 0.1 (0.0-0.2) K/mcL Sodium 146 H (136-145) mEq/L Potassium 4.4 (3.5-5.1) mEq/L Chloride 111 H (98-107) mEq/L Carbon Dioxide 24 (23-29) mEq/L BUN 64 H (8-23) mg/dL Creatinine 1.72 H (0.70-1.30) mg/dL Est GFR ( Amer) 46 L (> 60) Est GFR (Non-Af Amer) 38 L (> 60) BUN/Creatinine Ratio 37 H (6-26) Glucose 167 H (70-105) mg/dL Calculated Osmolality 324 H (280-300) Calcium 10.1 (8.6-10.3) mg/dL Troponin I 0.08 H* (< 0.04) ng/mL Blood Type Antibody Screen Crossmatch 08/28/17 Range/Units 14:52 WBC (4.3-11.1) K/mcL RBC (4.19-5.50) M/mcL Hgb (12.9-16.9) g/dL Hct (37.5-50.1) % MCV (83.0-100.0) fL MCH (28.0-33.3) pg MCHC (31.6-35.5) g/dL RDW (11.5-14.5) % Plt Count (140-400) K/mcL MPV (9.4-12.4) fL Immature Gran % (0-4) % Seg Neutrophils % % Lymphocytes % % Monocytes % % Eosinophils % % Basophils % % Neutrophils # (1.6-8.9) K/mcL Lymphocytes # (0.6-4.6) K/mcL Monocytes # (0.0-1.3) K/mcL Eosinophils # (0.0-0.6) K/mcL Basophils # (0.0-0.2) K/mcL Sodium (136-145) mEq/L Potassium (3.5-5.1) mEq/L Chloride (98-107) mEq/L Carbon Dioxide (23-29) mEq/L BUN (8-23) mg/dL Creatinine (0.70-1.30) mg/dL Est GFR ( Amer) (> 60) Est GFR (Non-Af Amer) (> 60) BUN/Creatinine Ratio (6-26) Glucose (70-105) mg/dL Calculated Osmolality (280-300) Calcium (8.6-10.3) mg/dL Troponin I (< 0.04) ng/mL Blood Type A POSITIVE Antibody Screen NEGATIVE Crossmatch See Detail Attestation Statement - Attestation Attestation: I examined this patient and my medical decision-making was reviewed with the INVESTIGATION MANAGER/PA/Advanced Practice Nurse/Resident Physician. I agree with the documented findings, disposition and treatment plan as described except to the extent set forth below. The patient presents from a fdc and is here with both daughters and he is not able to give any history secondary to his medical condition of dementia and the chief complaint is altered level of consciousness and decreased level of consciousness for the last several days and they deny any knowledge of history of falls, fevers, difficulty breathing, vomiting. I did review his EGD which shows a paced rhythm with a rate of 77 and patient does have evaluation in progress here. [facility]
[2017-08-28 12:36] LABS: Basophils # 0.1 K/mcL (0.0-0.2); Basophils % 0.4 %; Eosinophils # 0.1 K/mcL (0.0-0.6); Eosinophils % 0.9 %; Hematocrit 25.9 % (37.5-50.1); Immature Granulocytes % 0.4 % (0-4); Lymphocytes # 1.5 K/mcL (0.6-4.6); Lymphocytes % 11.2 %; Mean Corpuscular HGB Conc 29.3 g/dL (31.6-35.5); Mean Corpuscular Hemoglobin 24.3 pg (28.0-33.3); Mean Corpuscular Volume 82.7 fL (83.0-100.0); Mean Platelet Volume 9.8 fL (9.4-12.4); Monocytes % 7.4 %; Neutrophils # 10.4 K/mcL (1.6-8.9); Platelet Count 331 K/mcL (140-400); Red Blood Count 3.13 M/mcL (4.19-5.50); Red Cell Distribution Width 20.4 % (11.5-14.5); Segmented Neutrophils % 79.7 %
[2017-08-28 12:41] LABS: Hemoglobin 7.6 g/dL (12.9-16.9)
--- NOTE | 2017-08-28 12:43 | Emergency Department Note ---
Disposition Clinical Impression: Altered consciousness, Melena, Occult blood in stools, Acute kidney injury Anemia Qualifiers: Anemia type: unspecified type Qualified Code(s): D64.9 - Anemia, unspecified Disposition: Admitted As Inpatient Condition: Fair Time of Disposition: 12:54 General Adult HPI - General Chief complaint: ED Altered Mental Status Stated complaint: Lethargic Time Seen by Provider: 08/28/17 11:23 Source: family, EMS Limitations: altered mental status Nursing Notes Reviewed: Yes Vital Signs Reviewed: Yes - History of Present Illness HPI Narrative: Mr. Albarran presents from [facility] for evaluation of a change in consciousness. Noted by retirement staff to be somnolent, unresponsive. Though he does have a history of Lewy body dementia he was not at his baseline this morning at the retirement. With patient's daughter at bedside, they know patient is now at his baseline. They did not see him this morning. He is 100% assist; unable to feed himself, history of a patient and dysphagia. He wears an adult diaper. PMH: Lewy body dementia, CVA with hemiplegia. aphasia, dysphagia, hypertension , CKD stage III, iron deficiency anemia, GERD, BPH, has cardiac pacemaker, history of recurrent UTI, hyperlipidemia CODE STATUS: DNR CC. Pain Scale: 0 - Related Data Home Medications Medication Instructions Recorded Confirmed Amlodipine [Amlodipine Besylate] 10 mg PO DAILY 03/31/15 08/28/17 Carbidopa/Levodopa 25/100 [Sinemet 1 each PO BID 03/31/15 08/28/17 25/100] Cholecalciferol (Vitamin D3) 1,000 unit PO BID 03/31/15 08/28/17 [Vitamin D] Finasteride [Proscar] 5 mg PO DAILY 03/31/15 08/28/17 Lactulose 20 gm PO QAM 03/31/15 08/28/17 Melatonin [Melatin] 3 mg PO HS 03/31/15 08/28/17 Memantine HCl [Namenda Xr] 7 mg PO DAILY 03/31/15 08/28/17 Metoprolol XL (24 HR) Succ [Toprol 50 mg PO DAILY 03/31/15 08/28/17 XL] Probenecid [Benemid] 500 mg PO BID 03/31/15 08/28/17 Vitamin B Complex [B Complex] 1 each PO DAILY 03/31/15 08/28/17 Acetaminophen [Tylenol] 650 mg PO Q8H PRN 07/29/16 08/28/17 Bisacodyl [Dulcolax] 10 mg RC DAILY PRN 07/29/16 08/28/17 Furosemide [Lasix] 20 mg PO DAILY 07/29/16 08/28/17 LORazepam [Ativan] 1 mg PO BID PRN 07/29/16 08/28/17 Magnesium Hydroxide [Milk of 400 mg PO DAILY PRN 07/29/16 08/28/17 Magnesia] Nitroglycerin [Nitrostat] 0.4 mg SL Q5M PRN 07/29/16 08/28/17 Potassium Chloride [K-Tab ER] 20 meq PO DAILY 07/29/16 08/28/17 Sennosides [Senna] 8.6 mg PO BID 07/29/16 08/28/17 Sertraline [Zoloft] 25 mg PO QPM 08/28/17 08/28/17 Sertraline [Zoloft] 50 mg PO QAM 08/28/17 08/28/17 Previous Rx's Medication Instructions Recorded Aspirin Enteric Coated [Aspirin EC] 81 mg PO DAILY #30 tablet. 08/06/16 Atorvastatin [Lipitor] 20 mg PO HS #30 tablet 08/06/16 Tamsulosin [Flomax] 0.4 mg PO 1800 #30 capsule 08/06/16 Allergies Allergy/AdvReac Type Severity Reaction Status Date / Time allopurinol Allergy See Verified 03/31/15 14:23 Comments All systems ED: reviewed and negative except as stated. Review of Systems: As Per HPI Past Medical History - Past Medical History Medical history: Reports: CVA, dementia, hyperlipidemia, hypertension, renal disease Surgical history: Reports: AICD Psychiatric history: Reports: depression - Social History Smoking Status: Unknown if ever smoked Smokeless Tobacco Status: No Alcohol use: Reports: none Drug use: Reports: none Physical Exam Vital Signs Reviewed General: Patient is awake, nonverbal, in no apparent distress. He will move his head and look at whomever is speaking and, as a speaker shifts from one side of the bed to the other he will follow the sound with head and eye movement. He otherwise has no response either verbal or motor to command or questions. Head: atraumatic, normocephalic Eye: normal appearance, pupils 2 mm and, no scleral icterus, no conjunctival injection ENT: mucous membranes moist, normal external ear exam Neck: normal inspection, trachea midline, full ROM Chest: normal inspection, symmetric chest rise Respiratory: Poor respiratory effort. Bilateral breath sounds are clear without wheezing, crackles, or rhonchi. Cardiovascular: Regular rate and rhythm. No clicks, rubs, gallops. Systolic murmur. Normal S1 and S2. Abdomen: Bowel sounds present normoactive x-4 quadrants. Abdomen is soft, nondistended. No guarding or rebound. No organomegaly noted. Rectal exam: Estimator And Drafter Supervisor present. Melanotic stool on glove fingertip. Bedside FOBT strongly positive. Skin: warm, dry, intact. Neuro: GCS 7 (E4, M2, V0). Patient is unable to move his lower extremities and will occasionally give a gentle squeeze of his hand though not to verbal commands. Patient will yell to pain (straight catheter attempt) however has no withdrawal. Psych: Patient's affect is appropriate for situation. - General Limitations: altered mental status General appearance: lethargic Course Course Narrative: EKG dated 28 Aug 2017 at 11:07 interpreted as ventricular paced with rate of 77. Normal intervals. Left axis. Nonspecific ST-T changes. Compared to previous dated 04/19/2017 showing no acute ischemic changes. Rashes neurologic status is baseline per family at bedside. Discussed with the patient's family at bedside his head CT showing no acute changes as well as chest x-ray showing no acute changes. Discussed he had mild leukocytosis with a white count of 13. Discussed the need for urinalysis for further investigation and possible urinary tract infection which could be causing his symptoms. Family defers urinalysis as patient's BPH precludes a very painful catheterization and they do not want to subject him to that discomfort. They prefer empiric antibiotics. I discussed in detail my inability to discern whether or not he truly has urinary tract infection causing his symptoms. We discussed that I cannot discern if the antibiotic chosen would be sensitive and against a possible urinary tract infection therapy no cultures reported. They understand that he may get worse or may improve. They understand that the only evidence of antibiotic failure would be that he may abruptly get worse. Also had a discussion regarding the patient's elevation in creatinine as well as his troponin of 0.08. We discussed the risks of an elevated troponin and with that means in the context of his heart in significant cardiac history. Patient's hemoglobin is 7.6 down from 9.1. Patient has melena stools with positive FOBT on rectal exam. This precludes aspirin therapy for his elevation in troponin. His family agrees to admission for continued evaluation and management of his melana. 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 I discussed the patient with the admitting hospitalist, Dr. Ivan, who agrees to accept the patient for continued evaluation and management for his anemia with occult GI bleed. Head CT 08/28/17 11:33 IMPRESSION: 1. No acute intracranial abnormality. 2. 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 3. Air-fluid levels within the left maxillary sinus. Correlate with symptoms of sinusitis. D/ / Jose Carreon MD / Jose Carreon MD Interpreting Provider: Jose Carreon MD Chest X-Ray 08/28/17 11:34 IMPRESSION: No radiographic evidence of acute cardiopulmonary process. D/ / Jose Carreon MD / Jose Carreon MD Interpreting Provider: Jose Carreon MD Vital Signs Temperature 97.7 F 08/28/17 11:06 Pulse Rate 77 08/28/17 11:06 Respiratory Rate 18 08/28/17 11:06 Blood Pressure 134/69 08/28/17 11:06 O2 Sat by Pulse Oximetry 100 08/28/17 11:06 Temperature 97.6 F 08/28/17 20:38 Pulse Rate 73 08/28/17 20:38 Respiratory Rate 12 08/28/17 20:38 Blood Pressure 137/78 08/28/17 20:38 O2 Sat by Pulse Oximetry 92 08/28/17 20:38 Oxygen Delivery Oxygen Delivery Nasal Cannula Medical Decision Making - Lab Data Result diagrams: 08/28/17 11:33 08/28/17 11:33 Lab Results 08/28/17 08/28/17 08/28/17 Range/Units 11:33 11:33 11:34 WBC 13.0 H (4.3-11.1) K/mcL RBC 3.13 L (4.19-5.50) M/mcL Hgb 7.6 L (12.9-16.9) g/dL Hct 25.9 L (37.5-50.1) % MCV 82.7 L (83.0-100.0) fL MCH 24.3 L (28.0-33.3) pg MCHC 29.3 L (31.6-35.5) g/dL RDW 20.4 H (11.5-14.5) % Plt Count 331 (140-400) K/mcL MPV 9.8 (9.4-12.4) fL Immature Gran % 0.4 (0-4) % Seg Neutrophils % 79.7 % Lymphocytes % 11.2 % Monocytes % 7.4 % Eosinophils % 0.9 % Basophils % 0.4 % Neutrophils # 10.4 H (1.6-8.9) K/mcL Lymphocytes # 1.5 (0.6-4.6) K/mcL Monocytes # 1.0 (0.0-1.3) K/mcL Eosinophils # 0.1 (0.0-0.6) K/mcL Basophils # 0.1 (0.0-0.2) K/mcL Sodium 146 H (136-145) mEq/L Potassium 4.4 (3.5-5.1) mEq/L Chloride 111 H (98-107) mEq/L Carbon Dioxide 24 (23-29) mEq/L BUN 64 H (8-23) mg/dL Creatinine 1.72 H (0.70-1.30) mg/dL Est GFR ( Amer) 46 L (> 60) Est GFR (Non-Af Amer) 38 L (> 60) BUN/Creatinine Ratio 37 H (6-26) Glucose 167 H (70-105) mg/dL Calculated Osmolality 324 H (280-300) Calcium 10.1 (8.6-10.3) mg/dL Troponin I 0.08 H* (< 0.04) ng/mL Blood Type Antibody Screen Crossmatch 08/28/17 Range/Units 14:52 WBC (4.3-11.1) K/mcL RBC (4.19-5.50) M/mcL Hgb (12.9-16.9) g/dL Hct (37.5-50.1) % MCV (83.0-100.0) fL MCH (28.0-33.3) pg MCHC (31.6-35.5) g/dL RDW (11.5-14.5) % Plt Count (140-400) K/mcL MPV (9.4-12.4) fL Immature Gran % (0-4) % Seg Neutrophils % % Lymphocytes % % Monocytes % % Eosinophils % % Basophils % % Neutrophils # (1.6-8.9) K/mcL Lymphocytes # (0.6-4.6) K/mcL Monocytes # (0.0-1.3) K/mcL Eosinophils # (0.0-0.6) K/mcL Basophils # (0.0-0.2) K/mcL Sodium (136-145) mEq/L Potassium (3.5-5.1) mEq/L Chloride (98-107) mEq/L Carbon Dioxide (23-29) mEq/L BUN (8-23) mg/dL Creatinine (0.70-1.30) mg/dL Est GFR ( Amer) (> 60) Est GFR (Non-Af Amer) (> 60) BUN/Creatinine Ratio (6-26) Glucose (70-105) mg/dL Calculated Osmolality (280-300) Calcium (8.6-10.3) mg/dL Troponin I (< 0.04) ng/mL Blood Type A POSITIVE Antibody Screen NEGATIVE Crossmatch See Detail
[2017-08-28 13:07] LABS: Calcium 10.1 mg/dL (8.6-10.3); Potassium 4.4 mEq/L (3.5-5.1)
[2017-08-28] MEDS ORDERED: Aspirin 81 MG TAB.CHEW PO ONE (13:48)
--- NOTE | 2017-08-28 14:18 | Internal Med History&Physical ---
Date of Encounter: 08/28/17 Time of Encounter: 14:11 Internal Medicine - H&P: HPI Chief complaint: mental status changes Admitted From: Emergency Dept Plans for Post Hospital Care: Transfer Custodial Facility History of present illness: Mr. Albarran is a 86 year old male Patient with history of hypertension, dementia, Parkinson, CK D, CAD with prior stent, high cholesterol and AICD. Patient is a skilled nursing resident was sent to the emergency room due to mental status changes of decreased consciousness for several days and then brought into the emergency room patient has prior stroke and unable to get any much information from him. two daughters are in emergency room with him and apparently he appears at his baseline as far as both daughter can observe PATIENT IS DNR CCA. FOLLOW ccEVALUATION CHEST X-RAY IS UNREMARKABLE . HEAD CT NEGATIVE WHITE COUNT IS MILDLY ELEVATED at 13 . family DOES NOT WANT PATIENT TO HAVE A UA because they feel IS TRAUMATIC TO TRY TO OBTAIN U A by miguel CBC came back hemoglobin of 7.6 it was 9.9 back in July 24 was 9.9 family request patient to be treated empirically for UTI without obtain a UA or culture we will respect their wishes and place somewhat on Rocephin and give blood transfusion resume DNR status and admitted for observation. Past Med Surg Social Fam HX - Past Medical History Medical history: CVA, dementia, hyperlipidemia, hypertension, renal disease Psychiatric history: depression - Past Surgical History Surgical History: AICD - Social History Smoking Status: Unknown if ever smoked Smokeless Tobacco Status: No Alcohol use: none Drug use: none Internal Medicine - H&P: Meds Amlodipine [Amlodipine Besylate] 10 mg PO DAILY 03/31/15 [History] Carbidopa/Levodopa 25/100 [Sinemet 25/100] 1 each PO BID 03/31/15 [History] Cholecalciferol (Vitamin D3) [Vitamin D] 1,000 unit PO BID 03/31/15 [History] Finasteride [Proscar] 5 mg PO DAILY 03/31/15 [History] Lactulose 20 gm PO QAM 03/31/15 [History] Melatonin [Melatin] 3 mg PO HS 03/31/15 [History] Memantine HCl [Namenda Xr] 7 mg PO DAILY 03/31/15 [History] Metoprolol XL (24 HR) Succ [Toprol XL] 50 mg PO DAILY 03/31/15 [History] Omeprazole [PriLOSEC] 20 mg PO DAILY 03/31/15 [History] Probenecid [Benemid] 500 mg PO BID 03/31/15 [History] Vitamin B Complex [B Complex] 1 each PO DAILY 03/31/15 [History] Acetaminophen [Tylenol] 650 mg PO Q8H PRN 07/29/16 [History] Bisacodyl [Dulcolax] 10 mg RC DAILY PRN 07/29/16 [History] Furosemide [Lasix] 20 mg PO DAILY 07/29/16 [History] LORazepam [Ativan] 1 mg PO BID PRN 07/29/16 [History] Magnesium Hydroxide [Milk of Magnesia] 400 mg PO DAILY PRN 07/29/16 [History] Nitroglycerin [Nitrostat] 0.4 mg SL Q5M PRN 07/29/16 [History] Potassium Chloride [K-Tab ER] 20 meq PO DAILY 07/29/16 [History] Sennosides [Senna] 8.6 mg PO BID 07/29/16 [History] Aspirin Enteric Coated [Aspirin EC] 81 mg PO DAILY #30 tablet. 08/06/16 [Rx] Atorvastatin [Lipitor] 20 mg PO HS #30 tablet 08/06/16 [Rx] Levofloxacin [Levaquin] 750 mg PO Q48H #3 tablet 08/06/16 [Rx] Sertraline [Zoloft] 100 mg PO DAILY #30 tablet 08/06/16 [Rx] Tamsulosin [Flomax] 0.4 mg PO 1800 #30 capsule 08/06/16 [Rx] cephALEXin [Keflex] 500 mg PO BID 7 Days #14 capsule 04/19/17 [Rx] 3 Allergy/AdvReac Type Severity Reaction Status Date / Time allopurinol Allergy See Verified 03/31/15 14:23 Comments ROS unobtainable: due to mental status All Systems PM: A 10-system review of systems was performed and is negative for pertinent findings except as documented above in the HPI. - Constitutional Vitals: Temp Pulse Resp BP Pulse Ox 97.7 F 74 16 127/67 100 08/28/17 11:06 08/28/17 14:02 08/28/17 14:02 08/28/17 14:02 08/28/17 14:02 - Eye Eye exam: Present: PERRL, conjuntiva pink, sclera anicteric Pupils: Present: PERRL - Respiratory Respiratory exam: Present: CTAB. Absent: accessory muscle use, rales, rhonchi, wheezes - Cardiovascular Cardiovascular exam: Present: RRR, +S1, +S2. Absent: diastolic murmur, gallop, rubs, systolic murmur Internal Med - H&P Results - Labs CBC & Chem 7: 08/28/17 11:33 08/28/17 11:33 Labs: Short CBC 08/28/17 Range/Units 11:33 WBC 13.0 H (4.3-11.1) K/mcL Hgb 7.6 L (12.9-16.9) g/dL Hct 25.9 L (37.5-50.1) % Plt Count 331 (140-400) K/mcL Neutrophils # 10.4 H (1.6-8.9) K/mcL BMP 08/28/17 11:33 Sodium 146 H Potassium 4.4 Chloride 111 H Carbon Dioxide 24 BUN 64 H Creatinine 1.72 H Glucose 167 H Calcium 10.1 Cardiac Enzymes 08/28/17 Range/Units 11:34 Troponin I 0.08 H* (< 0.04) ng/mL - Impressions ITS Impressions Head CT 08/28/17 11:33 IMPRESSION: 1. No acute intracranial abnormality. 2. 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 3. Air-fluid levels within the left maxillary sinus. Correlate with symptoms of sinusitis. D/ / Jose Carreon MD / Jose Carreon MD Interpreting Provider: Jose Carreon MD Chest X-Ray 08/28/17 11:34 IMPRESSION: No radiographic evidence of acute cardiopulmonary process. D/ / Jose Carreon MD / Jose Carreon MD Interpreting Provider: Jose Carreon MD - Assessment and plan (1) Dementia Current Visit: Yes Status: Acute Assessment and plan: Chronic we will resume home medication Qualifiers: Dementia type: unspecified type Dementia behavioral disturbance: without behavioral disturbance Qualified Code(s): F03.90 - Unspecified dementia without behavioral disturbance (2) Parkinson disease Current Visit: Yes Status: Chronic Assessment and plan: Chronic continue home medication (3) Altered consciousness Current Visit: Yes Status: Acute Assessment and plan: Reason for transfer to the emergency room Head CT is unremarkable white count is mildly elevated chest x-ray no pneumonia Per family requests we treat empirically for UTI without definite diagnosis family feels obtaining UA will be traumatic (4) Anemia Current Visit: Yes Status: Acute Assessment and plan: due to likely blood loss hgb was 9.9 in june patient is dnrcca will just transfuse and follow cbc Qualifiers: Anemia type: unspecified type Qualified Code(s): D64.9 - Anemia, unspecified (5) Expressive aphasia Current Visit: No Status: Acute Assessment and plan: patient non verbal (6) HTN (hypertension) Current Visit: No Status: Chronic Assessment and plan: Chronic and well controlled Qualifiers: Hypertension type: essential hypertension Qualified Code(s): I10 - Essential (primary) hypertension (7) Parkinson disease Current Visit: No Status: Chronic Assessment and plan: Chronic resume home medication - Time Spent With Patient Total time spent is greater than 50% in coordination of care (as documented) at patient's floor/unit and/or counseling patient:
[2017-08-28] MEDS ORDERED: Naloxone 0.4 MG/ML INJ IVP PRN (14:24)
[2017-08-28] MEDS ORDERED: Acetaminophen 325 MG TABLET PO PRN (14:24)
[2017-08-28] MEDS ORDERED: traMADol 50 MG TABLET PO PRN (14:24)
[2017-08-28] MEDS ORDERED: MOM Conc 10 ML UD.LIQ PO PRN (14:26)
[2017-08-28] MEDS ORDERED: Bisacodyl 10 MG RECTAL SUPPOSITORY RC PRN (14:26)
[2017-08-28] MEDS ORDERED: *HR* LORazepam 1 MG TABLET PO PRN (14:26)
[2017-08-28] MEDS: 0.9 % Sodium Chloride 1,000 ML IVC SCH (15:32)
[2017-08-28] MEDS ORDERED: 0.9 % Sodium Chloride 250 ML ONE (17:27)
[2017-08-28] MEDS: Carbidopa/Levodopa 25/100 TABLET PO SCH (19:53)
[2017-08-28] MEDS: Sennosides 8.6 MG TABLET PO SCH (19:53)
[2017-08-28] MEDS: Melatonin 3 MG TABLET PO SCH (19:53)
[2017-08-28] MEDS: Cholecalciferol (D-3) 1,000 UNIT TABLET PO SCH (19:54)
[2017-08-29 04:52] LABS: Hematocrit 27.5 % (37.5-50.1); Hemoglobin 8.3 g/dL (12.9-16.9); Immature Platelets 2.3 % (1.1-6.1); Mean Corpuscular HGB Conc 30.2 g/dL (31.6-35.5); Mean Corpuscular Hemoglobin 25.4 pg (28.0-33.3); Mean Corpuscular Volume 84.1 fL (83.0-100.0); Mean Platelet Volume 10.1 fL (9.4-12.4); Red Blood Count 3.27 M/mcL (4.19-5.50); Red Cell Distribution Width 18.6 % (11.5-14.5)
[2017-08-29 05:12] LABS: Calcium 9.1 mg/dL (8.6-10.3); Magnesium 2.1 mg/dL (1.6-2.6); Potassium 4.2 mEq/L (3.5-5.1)
--- NOTE | 2017-08-29 06:27 | Electrocardiograph Report ---
[employer] Test Date: 2017-08-28 Pat Name: Ryder Albarran Department: 103 Room: 2A11 Gender: M Business Analyst Consultant: MSC : [id number] Requested By: Davi Mackay Order Number: [id number] Reading MD: Rudolph Ortiz Measurements Intervals Tie Siding Rate: 77 P: 23 OK: 160 QRS: 260 QRSD: 170 T: 81 QT: 442 QTc: 473 Interpretive Statements ELECTRONIC VENTRICULAR PACEMAKER ABNORMAL RHYTHM ECG Electronically Signed On 08-29-2017 6:25:55 EDT by Rudolph Ortiz
--- NOTE | 2017-08-29 07:37 | Internal Med Progress Note ---
Date of Encounter: 08/29/17 Time of Encounter: 07:32 - Assessment and plan (1) Dementia Current Visit: Yes Status: Acute Assessment and plan: Chronic now with mental status changes Qualifiers: Dementia type: unspecified type Dementia behavioral disturbance: without behavioral disturbance Qualified Code(s): F03.90 - Unspecified dementia without behavioral disturbance (2) Parkinson disease Current Visit: Yes Status: Chronic Assessment and plan: Chronic continue home medication (3) Altered consciousness Current Visit: Yes Status: Acute Assessment and plan: Patient family says he appears at his baseline of nonverbal and not interactive (4) Anemia Current Visit: Yes Status: Acute Assessment and plan: Appears patient also having some GI bleed hemoglobin was 7.6 transfused 2 units of blood that went after only 8.3 GI is being consulted Qualifiers: Anemia type: unspecified type Qualified Code(s): D64.9 - Anemia, unspecified (5) Expressive aphasia Current Visit: No Status: Chronic Assessment and plan: Expressive aphasia from last admission of stroke (6) HTN (hypertension) Current Visit: No Status: Chronic Assessment and plan: Relatively controlled we will continue home medication Qualifiers: Hypertension type: essential hypertension Qualified Code(s): I10 - Essential (primary) hypertension (7) Parkinson disease Current Visit: No Status: Chronic - Time Spent With Patient Total time spent is greater than 50% in coordination of care (as documented) at patient's floor/unit and/or counseling patient: - Subjective Interval history: Patient with hypertension, dementia, CAD, CAD patient admitted from halfway due to mental status changes and being treated empirically for UTI white count is down from 13-8. hemoglobin was low 7.6 gven 2 units of blood but hgb did not rise appropriately Nurse also reports patient guiac positive guaiac stool we will recheck CBC this evening and tomorrow morning and I will consult GI - Constitutional Vitals: Temp Pulse Resp BP Pulse Ox 97.9 F 71 17 164/76 98 08/29/17 03:41 08/29/17 03:41 08/29/17 03:41 08/29/17 03:41 08/29/17 03:41 General appearance: Present: mild distress - Respiratory Respiratory exam: Present: CTAB. Absent: accessory muscle use, rales, rhonchi, wheezes - Cardiovascular Cardiovascular exam: Present: RRR, +S1, +S2. Absent: diastolic murmur, gallop, rubs, systolic murmur - GI/Abdominal GI/Abdominal exam: Present: normal bowel sounds, soft, no peritoneal signs. Absent: distended, tenderness - Extremities Exam Extremities exam: Present: warm, radial pulses palpable and symmetrical. Absent : calf tenderness, cyanotic, pedal edema Internal Medicine: Result - Labs CBC & Chem 7: 08/29/17 04:24 08/29/17 04:24 Labs: Short CBC 08/29/17 Range/Units 04:24 WBC 8.5 (4.3-11.1) K/mcL Hgb 8.3 L (12.9-16.9) g/dL Hct 27.5 L (37.5-50.1) % Plt Count 280 (140-400) K/mcL [facility] 08/29/17 04:24 Sodium 148 H Potassium 4.2 Chloride 116 H Carbon Dioxide 25 BUN 58 H Creatinine 1.65 H Glucose 122 H Calcium 9.1 Consult Discharge Plan - Plan Referrals: Michel Stevens [Primary Care Provider] -
[2017-08-29] MEDS: Sennosides 8.6 MG TABLET PO SCH ×3 (09:28→20:31)
[2017-08-29] MEDS: Carbidopa/Levodopa 25/100 TABLET PO SCH ×3 (09:28→20:31)
[2017-08-29] MEDS: cefTRIAXone 1,000 MG in Water for inj. (sterile) 20 ML 10 ML IVP SCH (09:41)
[2017-08-29] MEDS: 0.9 % Sodium Chloride 1,000 ML IVC SCH (11:18)
[2017-08-29] MEDS: Metoprolol XL (24 HR) Succ 25 MG TAB.ER.24H PO SCH (14:02)
[2017-08-29] MEDS: Finasteride 5 MG TABLET PO SCH (14:02)
[2017-08-29] MEDS: Vitamin B Complex/Vit C/Vit E 1 EACH TABLET PO SCH (14:02)
[2017-08-29] MEDS: amLODIPine 5 MG TABLET PO SCH (14:02)
[2017-08-29] MEDS: Aspirin Enteric Coated 81 MG Tablet PO SCH ×2 (14:02→14:38)
[2017-08-29] MEDS: Lactulose Oral Soln 20 GM/30 ML UDC PO SCH ×2 (14:02→14:21)
[2017-08-29] MEDS: Cholecalciferol (D-3) 1,000 UNIT TABLET PO SCH (14:03)
--- NOTE | 2017-08-29 14:05 | Gastroenterology Consult Note ---
Date of Encounter: 08/29/17 Time of Encounter: 14:00 - Assessment and plan (1) Anemia Current Visit: Yes Status: Chronic Assessment and plan: Patient with baseline hemoglobin around 10 and now hemoglobin is down to 7.6 no overt GI bleeding. Had a workup done for anemia in 2014 and it showed a normal EGD and few colon polyps. Talked to the daughter and the the plan is to do an EGD in the morning but we will hold on any further GI workup. Qualifiers: Anemia type: unspecified type Qualified Code(s): D64.9 - Anemia, unspecified - Time Spent With Patient Total time spent is greater than 50% in coordination of care (as documented) at patient's floor/unit and/or counseling patient: GI History of Present Illness - Data of Consult Requesting Physician: Edil Ivan MD - Consult Narrative Reason for consult: Anemia, positive stool guaiac History of present illness: Mr. Albarran is a 86 year old male with history of hypertension, dementia, Parkinson, CKD, CAD with prior stent, high cholesterol and AICD. Patient about to the emergency room because of change in mental status in the ER patient was found to be anemic with a hemoglobin of 7.6 his baseline is around 10 in the ER and in ER patient had a positive stool guaiac. Currently patient is being seen in his hospital room and no family members are around and because of the dimension no information can be obtained from the patient. Patient had scopes done for anemia workup in 2014 at that time EGD was unremarkable and colonoscopy showed multiple colon polyps. Past Med Surg Social Fam HX - Past Medical History Medical history: CVA, dementia, hyperlipidemia, hypertension, renal disease Psychiatric history: depression - Past Surgical History Surgical History: AICD - Social History Smoking Status: Unknown if ever smoked Smokeless Tobacco Status: No Alcohol use: none Drug use: none Review of Systems: Very limited as no information can be obtained from the patient because of his dementia - Constitutional Vitals: Temp Pulse Resp BP Pulse Ox 97.5 F L 67 16 165/85 97 08/29/17 12:10 08/29/17 12:10 08/29/17 12:10 08/29/17 12:10 08/29/17 12:10 CONSTITUTIONAL:~Sleepy but arousable not in acute distress does not response to question.~HEAD:~normocephalic.~EYES:~no jaundice.~NECK:~no obvious swelling.~ HEART:~regular rate and rhythm, a soft murmur murmurs, left upper chest with AICD in place.~LUNGS:~bilateral good air entry.~ABDOMEN:~non distended, soft, non tander, no masses pulpable, no organomegaly and has a small Davi hernia.~ RECTAL EXAM:~Deferred.~EXTREMITIES:~no clubbing, cyanosis or edema.~SKIN:~no stigmata of chronic liver disease.~NEUROLOGIC:~Has dementia and is bedbound ~~~~ Results - Labs CBC & Chem 7: 08/29/17 04:24 08/29/17 04:24 Labs: Last Result Calcium 9.1 mg/dL (8.6-10.3) 08/29/17 04:24 Troponin I 0.08 ng/mL (< 0.04) H* 08/28/17 11:34 Entire Visit Hgb 8.3 g/dL (12.9-16.9) L 08/29/17 04:24 Hct 27.5 % (37.5-50.1) L 08/29/17 04:24 Consult Discharge Plan - Plan Referrals: Micehl Stevens [Primary Care Provider] -
[2017-08-29] MEDS: Melatonin 3 MG TABLET PO SCH ×2 (20:18→20:31)
[2017-08-30 05:25] LABS: Basophils % 0.4 %; Eosinophils # 0.2 K/mcL (0.0-0.6); Eosinophils % 3.4 %; Hematocrit 26.2 % (37.5-50.1); Hemoglobin 7.9 g/dL (12.9-16.9); Immature Granulocytes % 0.3 % (0-4); Lymphocytes # 1.2 K/mcL (0.6-4.6); Lymphocytes % 17.9 %; Mean Corpuscular HGB Conc 30.2 g/dL (31.6-35.5); Mean Corpuscular Hemoglobin 25.6 pg (28.0-33.3); Mean Corpuscular Volume 85.1 fL (83.0-100.0); Mean Platelet Volume 9.7 fL (9.4-12.4); Monocytes # 0.6 K/mcL (0.0-1.3); Monocytes % 8.5 %; Neutrophils # 4.7 K/mcL (1.6-8.9); Platelet Count 214 K/mcL (140-400); Red Blood Count 3.08 M/mcL (4.19-5.50); Red Cell Distribution Width 18.9 % (11.5-14.5); Segmented Neutrophils % 69.5 %
[2017-08-30 05:48] LABS: BUN/Creatinine Ratio 29 (6-26); Blood Urea Nitrogen 34 mg/dL (8-23); Calcium 8.8 mg/dL (8.6-10.3); Carbon Dioxide 25 mEq/L (23-29); Chloride 119 mEq/L (98-107); Glucose 117 mg/dL (70-105); Osmolality,Calculated 317 (280-300); Potassium 3.7 mEq/L (3.5-5.1); Sodium 149 mEq/L (136-145); eGFR For African Americans > 60 (> 60); eGFR For Non-African Americans 59 (> 60)
[2017-08-30] MEDS: cefTRIAXone 1,000 MG in Water for inj. (sterile) 20 ML 10 ML IVP SCH (07:37)
[2017-08-30] MEDS ORDERED: *HR* Propofol 200 MG/20 ML VIAL IVP ONE ×2 (10:35→11:43)
[2017-08-30] MEDS ORDERED: Lidocaine -MPF 2% 2 ML VIAL ONE ×2 (10:35→11:44)
[2017-08-30] MEDS: 0.9 % Sodium Chloride 1,000 ML IVC SCH (10:58)
--- NOTE | 2017-08-30 11:26 | Anesthesia Evaluation PreOp ---
Date of Encounter: 08/30/17 Time of Encounter: 12:41 - Past History Planned Operation: EGD Cardiac History: HTN, Cardiac Stent, Pacemaker/ICD Pulmonary History: Denies Any Significant HX EMERGENCY MEDICAL SERVICES COORDINATOR History: Other (Dementia, Parkinson's, new onset mental status changes) Other Medical History: Renal (CKD), Bleeding (GI bleed, anemia), Other ( Hypernatremia, long term resident) Anesthesia History: No Prior Anesthetic Complications, Past Anesthesia Alcohol Use: none Drug use: none Medications and Allergies Amlodipine [Amlodipine Besylate] 10 mg PO DAILY 03/31/15 [History] Carbidopa/Levodopa 25/100 [Sinemet 25/100] 1 each PO BID 03/31/15 [History] Cholecalciferol (Vitamin D3) [Vitamin D] 1,000 unit PO BID 03/31/15 [History] Finasteride [Proscar] 5 mg PO DAILY 03/31/15 [History] Lactulose 20 gm PO QAM 03/31/15 [History] Melatonin [Melatin] 3 mg PO HS 03/31/15 [History] Memantine HCl [Namenda Xr] 7 mg PO DAILY 03/31/15 [History] Metoprolol XL (24 HR) Succ [Toprol XL] 50 mg PO DAILY 03/31/15 [History] Probenecid [Benemid] 500 mg PO BID 03/31/15 [History] Vitamin B Complex [B Complex] 1 each PO DAILY 03/31/15 [History] Acetaminophen [Tylenol] 650 mg PO Q8H PRN 07/29/16 [History] Bisacodyl [Dulcolax] 10 mg RC DAILY PRN 07/29/16 [History] Furosemide [Lasix] 20 mg PO DAILY 07/29/16 [History] LORazepam [Ativan] 1 mg PO BID PRN 07/29/16 [History] Magnesium Hydroxide [Milk of Magnesia] 400 mg PO DAILY PRN 07/29/16 [History] Nitroglycerin [Nitrostat] 0.4 mg SL Q5M PRN 07/29/16 [History] Potassium Chloride [K-Tab ER] 20 meq PO DAILY 07/29/16 [History] Sennosides [Senna] 8.6 mg PO BID 07/29/16 [History] Aspirin Enteric Coated [Aspirin EC] 81 mg PO DAILY #30 tablet. 08/06/16 [Rx] Atorvastatin [Lipitor] 20 mg PO HS #30 tablet 08/06/16 [Rx] Tamsulosin [Flomax] 0.4 mg PO 1800 #30 capsule 08/06/16 [Rx] Sertraline [Zoloft] 25 mg PO QPM 08/28/17 [History] Sertraline [Zoloft] 50 mg PO QAM 08/28/17 [History] 3 Allergy/AdvReac Type Severity Reaction Status Date / Time allopurinol Allergy See Verified 03/31/15 14:23 Comments - Meds/Allergy Pre-op Review Medications Reviewed: Yes Allergies Reviewed: Yes Anesthesia Results - Labs 08/30/17 05:14 08/30/17 05:14 - Imaging EKG: report reviewed (ELECTRONIC VENTRICULAR PACEMAKER ABNORMAL RHYTHM ECG) Additional studies: TTE 07/2016: LV systolic function appears low normal with use of Definity. Moderate increase in LV wall thickness. Atypical septal motion consistent with paced rhythm. Normal right ventricular size and function. Borderline evidence for mild pulmonary hypertension. No evidence for PFO with saline contrast, although images may be suboptimal. CT Head 08/28/2017: 1. No acute intracranial abnormality. 2. 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 3. Air-fluid levels within the left maxillary sinus. Correlate with symptoms of sinusitis. Anesthesia Exam Vital Signs/O2 Sat/Glucose, Most Recent Temp Pulse Resp BP Pulse Ox 97.6 F 60 16 150/75 100 08/30/17 10:55 08/30/17 10:55 08/30/17 10:55 08/30/17 10:55 08/30/17 10:55 Blood Glucose* 125 Weight: 83 kg NPO (# of Hours): 8 - HEENT Mallampati: II Teeth: Edentulous Oral Opening: Greater than 3 - EMERGENCY MEDICAL SERVICES COORDINATOR LOC: Unable to assess - Cardiac Rhythm: Regular - Pulmonary Breath Sounds: bilateral Clear Anesthesia Assess/Plan ASA Score: 4 Anesthetic Plan: MAC Monitoring Plan: Standard Monitors Recovery Plan: Other Anes Supervising Prov Stmt: Chart reviewed, patient examined, and anesthesia plan and consent obtained from patient's daughter Wendy over the phone.
--- NOTE | 2017-08-30 11:34 | Anesthesia Evaluation Post Op ---
Date of Encounter: 08/30/17 Time of Encounter: 13:10 Notes: Patient's vital signs have been reviewed. Patient is stable postoperatively and has adequately recovered from anesthesia. Patient is determined to have stable airway patency and respiratory function including respiratory rate and oxygen saturation. Patient has a stable heart rate, blood pressure and adequate hydration. Patients mental status is acceptable. Patients temperature is appropriate. Pain and nausea are adequately controlled. - Discharge PostOp Status: Transfer Patient to floor
--- NOTE | 2017-08-30 13:48 | Internal Med Progress Note ---
Date of Encounter: 08/30/17 Time of Encounter: 13:46 - Assessment and plan (1) Altered mental state Current Visit: Yes Status: Acute Assessment and plan: - Unknown etiology, guaiac stool positive, CBC revealed anemia, hypernatremia, dehydration, acute renal failure, possible UTI. - GI consult, schedule scope- EGD today. Status post 2 unit PRBC transfusion, continue trend H/H. - Sodium 146, continue IV D5, repeat BMP in the morning. - JAZMINE most likely due to dehydration, repeat labs in the morning. - Was empirically treated as UTI, urine sample was unable to obtained. Leukocytosis resolved, continue IV antibiotics for 2 more days. Qualifiers: Altered mental status type: unspecified Qualified Code(s): R41.82 - Altered mental status, unspecified (2) Anemia Current Visit: Yes Status: Chronic Assessment and plan: - EGD and colonoscopy in 2014 revealed normal upper GI and acute polyps in colon. - Was noted to have iron deficiency anemia in the past, not on iron supplement at home. - EGD today, continue PPI. - Check iron panel. Replace if indicated. Qualifiers: Anemia type: unspecified type Qualified Code(s): D64.9 - Anemia, unspecified (3) Acute kidney injury Current Visit: Yes Status: Acute Assessment and plan: - Creatinine 1.1 after IV fluid. Due to elevated sodium, continue IV fluid. Repeat BMP in a.m. (4) Dementia Current Visit: No Status: Chronic Assessment and plan: - Baseline dementia. Qualifiers: Dementia type: unspecified type Dementia behavioral disturbance: without behavioral disturbance Qualified Code(s): F03.90 - Unspecified dementia without behavioral disturbance (5) Parkinson disease Current Visit: No Status: Chronic Assessment and plan: - Continue home medication. (6) CVA (cerebral vascular accident) Current Visit: No Status: Chronic Assessment and plan: - Hold aspirin for now, we will resume if EGD was normal. 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 Monitor BP. Qualifiers: Hypertension type: essential hypertension Qualified Code(s): I10 - Essential (primary) hypertension - Time Spent With Patient Total time spent is greater than 50% in coordination of care (as documented) at patient's floor/unit and/or counseling patient: Greater than 35 minutes - Subjective Interval history: Patient seen and examined in the room. He has baseline dementia. He has no other complaints. - Constitutional Vitals: Temp Pulse Resp BP Pulse Ox 97.9 F 61 16 131/72 99 08/30/17 13:22 08/30/17 13:22 08/30/17 13:22 08/30/17 13:22 08/30/17 13:22 General appearance: Present: A&O X 1, mild distress Exam: PHYSICAL EXAMINATION: GENERAL APPEARANCE: The patient is alert and in no acute distress. HEENT: Head is normocephalic. The sinuses are nontender. Pupils are equal and reactive. The nares are patent. Oropharynx clear without lesions. NECK: Supple without lymphadenopathy. HEART: Regular rate and rhythm. LUNGS: No crackles or wheezes are heard. ABDOMEN: Soft, nontender, nondistended with good bowel sounds heard. Inguinal area is normal. EXTREMITIES: Without cyanosis, clubbing or edema. NEUROLOGICAL: Gross nonfocal. SKIN: Warm and dry without any rash. Internal Medicine: Result - Labs CBC & Chem 7: 08/30/17 05:14 08/30/17 05:14 Labs: Short CBC 08/30/17 Range/Units 05:14 WBC 6.8 (4.3-11.1) K/mcL Hgb 7.9 L (12.9-16.9) g/dL Hct 26.2 L (37.5-50.1) % Plt Count 214 (140-400) K/mcL Neutrophils # 4.7 (1.6-8.9) K/mcL BMP 08/30/17 05:14 Sodium 149 H Potassium 3.7 Chloride 119 H Carbon Dioxide 25 BUN 34 H Creatinine 1.17 Glucose 117 H Calcium 8.8 Consult Discharge Plan - Plan Referrals: Michel Stevens [Primary Care Provider] -
[2017-08-30] MEDS: Aspirin Enteric Coated 81 MG Tablet PO SCH (13:50)
[2017-08-30] MEDS: Finasteride 5 MG TABLET PO SCH (13:50)
[2017-08-30] MEDS: amLODIPine 5 MG TABLET PO SCH (13:50)
[2017-08-30] MEDS: Lactulose Oral Soln 20 GM/30 ML UDC PO SCH (13:50)
[2017-08-30] MEDS: Vitamin B Complex/Vit C/Vit E 1 EACH TABLET PO SCH (13:51)
[2017-08-30] MEDS: Sennosides 8.6 MG TABLET PO SCH ×2 (13:51→19:59)
[2017-08-30] MEDS: Cholecalciferol (D-3) 1,000 UNIT TABLET PO SCH (13:51)
[2017-08-30] MEDS: Carbidopa/Levodopa 25/100 TABLET PO SCH ×2 (13:51→19:59)
[2017-08-30] MEDS: Metoprolol XL (24 HR) Succ 25 MG TAB.ER.24H PO SCH (13:51)
[2017-08-30] MEDS: D5% in Water 1,000 ML IVC SCH ×2 (14:12→23:41)
[2017-08-30] MEDS: Pantoprazole 40 MG VIAL IVP SCH (17:24)
[2017-08-30] MEDS: Melatonin 3 MG TABLET PO SCH (19:59)
[2017-08-31] MEDS: Pantoprazole 40 MG VIAL IVP SCH (06:33)
[2017-08-31] MEDS: Vitamin B Complex/Vit C/Vit E 1 EACH TABLET PO SCH (08:06)
[2017-08-31] MEDS: amLODIPine 5 MG TABLET PO SCH (08:06)
[2017-08-31] MEDS: Cholecalciferol (D-3) 1,000 UNIT TABLET PO SCH (08:06)
[2017-08-31] MEDS: Finasteride 5 MG TABLET PO SCH (08:06)
[2017-08-31] MEDS: Carbidopa/Levodopa 25/100 TABLET PO SCH ×2 (08:06→21:42)
[2017-08-31] MEDS: Sennosides 8.6 MG TABLET PO SCH ×2 (08:06→21:41)
[2017-08-31 08:14] LABS: % Iron Saturation 6 % (20-55); BUN/Creatinine Ratio 17 (6-26); Blood Urea Nitrogen 20 mg/dL (8-23); Calcium 8.6 mg/dL (8.6-10.3); Carbon Dioxide 25 mEq/L (23-29); Chloride 110 mEq/L (98-107); Ferritin 18 ng/ml (20-250); Glucose 128 mg/dL (70-105); Iron 17 mcg/dL (65-175); Osmolality,Calculated 298 (280-300); Potassium 3.6 mEq/L (3.5-5.1); Sodium 142 mEq/L (136-145); Transferrin 208 mg/dL (203-362); eGFR For African Americans > 60 (> 60); eGFR For Non-African Americans 58 (> 60)
[2017-08-31] MEDS: cefTRIAXone 1,000 MG in Water for inj. (sterile) 20 ML 10 ML IVP SCH (08:20)
[2017-08-31] MEDS: 0.9 % Sodium Chloride 1,000 ML IVC SCH (08:25)
[2017-08-31] MEDS: Lactulose Oral Soln 20 GM/30 ML UDC PO SCH (08:25)
[2017-08-31] MEDS: D5% in Water 1,000 ML IVC SCH (08:25)
[2017-08-31] MEDS: Metoprolol XL (24 HR) Succ 25 MG TAB.ER.24H PO SCH (08:26)
[2017-08-31 08:40] LABS: Basophils % 0.4 %; Eosinophils # 0.2 K/mcL (0.0-0.6); Eosinophils % 2.6 %; Hematocrit 25.9 % (37.5-50.1); Hemoglobin 7.8 g/dL (12.9-16.9); Immature Granulocytes % 0.4 % (0-4); Lymphocytes # 1.3 K/mcL (0.6-4.6); Mean Corpuscular HGB Conc 30.1 g/dL (31.6-35.5); Mean Corpuscular Hemoglobin 25.8 pg (28.0-33.3); Mean Corpuscular Volume 85.8 fL (83.0-100.0); Mean Platelet Volume 9.9 fL (9.4-12.4); Monocytes # 0.6 K/mcL (0.0-1.3); Monocytes % 8.1 %; Neutrophils # 5.2 K/mcL (1.6-8.9); Platelet Count 209 K/mcL (140-400); Red Blood Count 3.02 M/mcL (4.19-5.50); Segmented Neutrophils % 70.5 %
--- NOTE | 2017-08-31 12:46 | Internal Med Progress Note ---
Date of Encounter: 08/31/17 Time of Encounter: 11:00 - Assessment and plan (1) Anemia Current Visit: Yes Status: Chronic Assessment and plan: Acute blood loss anemia EGD - showed non bleeding gastric ulcer H. Pylori and Biopsy done Switch to PO PPI Cont Carafate will resume ASA 81mg Qualifiers: Anemia type: unspecified type Qualified Code(s): D64.9 - Anemia, unspecified (2) Altered mental state Current Visit: Yes Status: Acute Assessment and plan: Multi factorial mostly metabolic encephalopathy with dehydration and JAZMINE Also dementia playing a role cont symptomatic and supportive care Qualifiers: Altered mental status type: unspecified Qualified Code(s): R41.82 - Altered mental status, unspecified (3) CVA (cerebral vascular accident) Current Visit: No Status: Chronic Assessment and plan: Resumed ASA since there is no active bleeding on EGD Qualifiers: CVA mechanism: embolism Precerebral and cerebral artery: middle cerebral artery Laterality of affected vessel: unspecified Qualified Code(s): 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 (4) HTN (hypertension) Current Visit: No Status: Chronic Assessment and plan: stable and well controlled in 140's cont Norvasc, Lopressor and Lisinopril Qualifiers: Hypertension type: essential hypertension Qualified Code(s): I10 - Essential (primary) hypertension (5) Acute kidney injury Current Visit: Yes Status: Acute Assessment and plan: improved with IV hydration he does have CKD-3 (6) Dementia Current Visit: No Status: Chronic Assessment and plan: cont supportive care high risk for falls Qualifiers: Dementia type: unspecified type Dementia behavioral disturbance: without behavioral disturbance Qualified Code(s): F03.90 - Unspecified dementia without behavioral disturbance (7) Parkinson disease Current Visit: No Status: Chronic Assessment and plan: - Continue home medication. (8) Protein-calorie malnutrition, moderate Current Visit: Yes Status: Acute Assessment and plan: He does have moderate PCM will consult temp recruiter for further caloric count Speech suggested for Pureed diet - Time Spent With Patient Total time spent is greater than 50% in coordination of care (as documented) at patient's floor/unit and/or counseling patient: - Subjective Interval history: Mr. Albarran is a 86 year old male Patient with history of hypertension, dementia , Parkinson, CKD-3, CAD with prior stent, high cholesterol and AICD [facility] was sent to the emergency room due to mental status changes of decreased consciousness for several days. CBC came back hemoglobin of 7.6 it was 9.9 back in July 24 was 9.9 . He did receive 2 U PRBC and his stool hemoccult positive. He went for EGD on 08/30/17. Now pt is alert, awake and O to self only. Tolerating pureed diet well. No events over night. - Constitutional Vitals: Temp Pulse Resp BP Pulse Ox 97.6 F 61 18 147/72 100 08/31/17 10:54 08/31/17 10:54 08/31/17 10:54 08/31/17 10:54 08/31/17 10:54 General appearance: Present: cooperative, A&O X 1 - Head Head exam: Present: atraumatic, normal inspection - Neck Neck exam general surgery: Present: supple - Respiratory Respiratory exam: Present: decreased breath sounds. Absent: rales, respiratory distress, rhonchi, wheezes - Cardiovascular Cardiovascular exam: Present: RRR, +S1, +S2. Absent: tachycardia - GI/Abdominal GI/Abdominal exam: Present: normal bowel sounds, soft. Absent: rebound, rigid, tenderness - Extremities Exam Extremities exam: Present: pedal edema. Absent: calf tenderness, tenderness - Back Exam Back exam: Absent: CVA tenderness (L), CVA tenderness (R) - Neurological Exam Neurological exam: Present: alert, altered - Psychiatric Additional comments: Demented Internal Medicine: Result - Labs CBC & Chem 7: 08/31/17 04:00 08/31/17 04:00 Labs: Short CBC 08/31/17 Range/Units 04:00 WBC 7.4 (4.3-11.1) K/mcL Hgb 7.8 L (12.9-16.9) g/dL Hct 25.9 L (37.5-50.1) % Plt Count 209 (140-400) K/mcL Neutrophils # 5.2 (1.6-8.9) K/mcL BMP 08/31/17 04:00 Sodium 142 Potassium 3.6 Chloride 110 H Carbon Dioxide 25 BUN 20 Creatinine 1.18 Glucose 128 H Calcium 8.6 Consult Discharge Plan - Plan Referrals: Michel Stevens [Primary Care Provider] -
[2017-08-31] MEDS: Melatonin 3 MG TABLET PO SCH (21:42)
[2017-09-01 06:35] LABS: Basophils % 0.3 %; Eosinophils # 0.2 K/mcL (0.0-0.6); Eosinophils % 3.5 %; Hematocrit 25.4 % (37.5-50.1); Hemoglobin 7.7 g/dL (12.9-16.9); Immature Granulocytes % 0.2 % (0-4); Lymphocytes # 1.3 K/mcL (0.6-4.6); Lymphocytes % 20.9 %; Mean Corpuscular HGB Conc 30.3 g/dL (31.6-35.5); Mean Corpuscular Hemoglobin 25.6 pg (28.0-33.3); Mean Corpuscular Volume 84.4 fL (83.0-100.0); Mean Platelet Volume 9.7 fL (9.4-12.4); Monocytes # 0.6 K/mcL (0.0-1.3); Monocytes % 10.1 %; Neutrophils # 4.1 K/mcL (1.6-8.9); Platelet Count 181 K/mcL (140-400); Red Blood Count 3.01 M/mcL (4.19-5.50); Red Cell Distribution Width 18.7 % (11.5-14.5)
[2017-09-01 06:46] LABS: BUN/Creatinine Ratio 12 (6-26); Blood Urea Nitrogen 14 mg/dL (8-23); Calcium 8.8 mg/dL (8.6-10.3); Carbon Dioxide 23 mEq/L (23-29); Chloride 111 mEq/L (98-107); Glucose 115 mg/dL (70-105); Osmolality,Calculated 297 (280-300); Potassium 3.5 mEq/L (3.5-5.1); Sodium 143 mEq/L (136-145); eGFR For African Americans > 60 (> 60); eGFR For Non-African Americans > 60 (> 60)
[2017-09-01] MEDS ORDERED: Aspirin Enteric Coated 81 MG Tablet PO SCH (09:00)
[2017-09-01] MEDS: Lactulose Oral Soln 20 GM/30 ML UDC PO SCH (09:41)
[2017-09-01] MEDS: cefTRIAXone 1,000 MG in Water for inj. (sterile) 20 ML 10 ML IVP SCH (09:41)
[2017-09-01] MEDS: Sennosides 8.6 MG TABLET PO SCH (09:42)
[2017-09-01] MEDS: amLODIPine 5 MG TABLET PO SCH (09:42)
[2017-09-01] MEDS: Vitamin B Complex/Vit C/Vit E 1 EACH TABLET PO SCH (09:42)
[2017-09-01] MEDS: Cholecalciferol (D-3) 1,000 UNIT TABLET PO SCH (09:42)
[2017-09-01] MEDS: Finasteride 5 MG TABLET PO SCH (09:43)
[2017-09-01] MEDS: Carbidopa/Levodopa 25/100 TABLET PO SCH (09:43)
[2017-09-01] MEDS: Metoprolol XL (24 HR) Succ 25 MG TAB.ER.24H PO SCH (09:43)
--- NOTE | 2017-09-01 10:19 | Discharge Summary ---
- NOTES TO OUTPATIENT PROVIDER Notes to Outpatient Provider: Follow up with SNF physician in 2-3 days after discharge. Recheck CBC (anemia) at that time. Discontinue PPI once hemoglobin back to baseline (around 9-10). 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 (3) HTN (hypertension) Priority: Secondary Status: Chronic Qualifiers: Hypertension type: essential hypertension Qualified Code(s): I10 - Essential (primary) hypertension (4) Anemia Priority: Secondary Status: Chronic Qualifiers: Anemia type: unspecified type Qualified Code(s): D64.9 - Anemia, unspecified (5) Acute kidney injury Priority: Secondary Status: Resolved (6) Dementia Priority: Secondary Status: Chronic Qualifiers: Dementia type: unspecified type Dementia behavioral disturbance: without behavioral disturbance Qualified Code(s): F03.90 - Unspecified dementia without behavioral disturbance (7) Parkinson disease Priority: Secondary Status: Chronic (8) Protein-calorie malnutrition, moderate Priority: Secondary Status: Acute Hospital course: Mr. Albarran is a 86 year old male admitted from SNF for altered mental status. 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 Patient was admitted to general medical floor. Bloodwork was monitored; he has chronic anemia, but hemoglobin was below baseline of 9-10. He was empirically treated for UTI with IV rocephin; completed 4 days of therapy. No UA or urine culture was obtained per family. He was transfused 2 units PRBC; hemoglobin remained stable at 7-8 during this hospitalization. He was started on IV PPI and transitioned to PO PPI. He will be discharged back to SNF with PPI; PPI can be discontinued once hemoglobin back to baseline. Patient is at his baseline mentation today. He does nor express any concerns nor does he look to be in any distress. He will be transferred back to [facility], and will follow up with SNF physician in 2-3 days after discharge. Patient has met maximum benefit of this hospitalization and will be discharged home in stable condition. Discharge discussed with: patient, nurse, other (Pharmacist) - Time Spent with Patient Total time spent providing and/or coordinating discharge services: Greater than 30 minutes - Discharge Medications Home Medications: Amlodipine [Amlodipine Besylate] 10 mg PO DAILY 03/31/15 [History] Carbidopa/Levodopa 25/100 [Sinemet 25/100] 1 each PO BID 03/31/15 [History] Cholecalciferol (Vitamin D3) [Vitamin D] 1,000 unit PO BID 03/31/15 [History] Finasteride [Proscar] 5 mg PO DAILY 03/31/15 [History] Lactulose 20 gm PO QAM 03/31/15 [History] Melatonin [Melatin] 3 mg PO HS 03/31/15 [History] Memantine HCl [Namenda Xr] 7 mg PO DAILY 03/31/15 [History] Probenecid [Benemid] 500 mg PO BID 03/31/15 [History] Vitamin B Complex [B Complex] 1 each PO DAILY 03/31/15 [History] Acetaminophen [Tylenol] 650 mg PO Q8H PRN 07/29/16 [History] Bisacodyl [Dulcolax] 10 mg RC DAILY PRN 07/29/16 [History] Furosemide [Lasix] 20 mg PO DAILY 07/29/16 [History] LORazepam [Ativan] 1 mg PO BID PRN 07/29/16 [History] Magnesium Hydroxide [Milk of Magnesia] 400 mg PO DAILY PRN 07/29/16 [History] Nitroglycerin [Nitrostat] 0.4 mg SL Q5M PRN 07/29/16 [History] Potassium Chloride [K-Tab ER] 20 meq PO DAILY 07/29/16 [History] Sennosides [Senna] 8.6 mg PO BID 07/29/16 [History] Aspirin Enteric Coated [Aspirin EC] 81 mg PO DAILY #30 tablet. 08/06/16 [Rx] Atorvastatin [Lipitor] 20 mg PO HS #30 tablet 08/06/16 [Rx] Tamsulosin [Flomax] 0.4 mg PO 1800 #30 capsule 08/06/16 [Rx] Lisinopril [Zestril] 10 mg PO DAILY tablet 09/01/17 [Rx] Metoprolol XL (24 HR) Succ [Toprol Xl] 25 mg PO DAILY tab.er.24h 09/01/17 [Rx] Omeprazole [PriLOSEC] 40 mg PO DAILY capsule. 09/01/17 [Rx] Sertraline [Zoloft] 100 mg PO DAILY tablet 09/01/17 [Rx] Allergies/Adverse Reactions: 3 Allergy/AdvReac Type Severity Reaction Status Date / Time allopurinol Allergy See Verified 03/31/15 14:23 Comments Date of admission: 08/31/17 09:58 Primary care physician: Michel Stevens Consults: Gastroenterology Discharging clinician: Reji Doyle Anticipated date of discharge: 09/01/17 - Constitutional Vitals: Temp Pulse Resp BP Pulse Ox 97.6 F 60 16 145/75 99 09/01/17 07:10 09/01/17 07:10 09/01/17 07:10 09/01/17 07:10 09/01/17 07:10 General appearance: Present: cooperative, pleasant, no acute distress Exam: Non-verbal, but nods and shakes head appropriately to questioning - Respiratory Respiratory exam: Present: CTAB. Absent: accessory muscle use, rales, rhonchi, wheezes Additional comments: Normal WOB - Cardiovascular Cardiovascular exam: Present: RRR, +S1, +S2. Absent: diastolic murmur, gallop, rubs, systolic murmur Additional comments: No BLE edema - GI/Abdominal GI/Abdominal exam: Present: normal bowel sounds, soft. Absent: distended, hepatomegaly, mass, splenomegaly, tenderness - Psychiatric Psychiatric exam: Present: normal affect, normal mood. Absent: agitated, anxious, depressed - Skin Skin exam: Present: dry, intact, warm. Absent: cyanosis, rash - Patient Status Disposition: Transfer SNF Condition: Good Overall status at discharge: patient is progressing back to baseline - Discharge Instructions Follow Up With: Michel Stevens [Primary Care Provider] - Additional Instructions: Follow up with SNF physician in 2-3 days after discharge. Recheck CBC (anemia) at that time. Discontinue PPI once hemoglobin back to baseline (around 9-10). - Diet and Activity Activity: resume usual activities as tolerated Diet: low fat, low cholesterol, low salt diet, other (Cardiac Diet) - VTE Documentation of Mechanical Device: Intermittent pneumatic compression device
--- NOTE | 2017-09-01 10:38 | Physician Discharge Referral ---
ExtendedCare Referral Info Transfer To: [facility] Provider in Charge after Transfer: Other (SNF Physician) Institutional Level of Care: Skilled - Diagnosis (1) Altered mental state Priority: Primary Status: Resolved (2) CVA (cerebral vascular accident) Priority: Secondary Status: Chronic (3) HTN (hypertension) Priority: Secondary Status: Chronic (4) Anemia Priority: Secondary Status: Chronic (5) Acute kidney injury Priority: Secondary Status: Resolved (6) Dementia Priority: Secondary Status: Chronic (7) Parkinson disease Priority: Secondary Status: Chronic (8) Protein-calorie malnutrition, moderate Priority: Secondary Status: Acute Prognosis: Fair Aware of Diagnosis: Patient Aware of Prognosis: Patient - Transfer Medications Home Medications: Amlodipine [Amlodipine Besylate] 10 mg PO DAILY 03/31/15 [History] Carbidopa/Levodopa 25/100 [Sinemet 25/100] 1 each PO BID 03/31/15 [History] Cholecalciferol (Vitamin D3) [Vitamin D] 1,000 unit PO BID 03/31/15 [History] Finasteride [Proscar] 5 mg PO DAILY 03/31/15 [History] Lactulose 20 gm PO QAM 03/31/15 [History] Melatonin [Melatin] 3 mg PO HS 03/31/15 [History] Memantine HCl [Namenda Xr] 7 mg PO DAILY 03/31/15 [History] Probenecid [Benemid] 500 mg PO BID 03/31/15 [History] Vitamin B Complex [B Complex] 1 each PO DAILY 03/31/15 [History] Acetaminophen [Tylenol] 650 mg PO Q8H PRN 07/29/16 [History] Bisacodyl [Dulcolax] 10 mg RC DAILY PRN 07/29/16 [History] Furosemide [Lasix] 20 mg PO DAILY 07/29/16 [History] LORazepam [Ativan] 1 mg PO BID PRN 07/29/16 [History] Magnesium Hydroxide [Milk of Magnesia] 400 mg PO DAILY PRN 07/29/16 [History] Nitroglycerin [Nitrostat] 0.4 mg SL Q5M PRN 07/29/16 [History] Potassium Chloride [K-Tab ER] 20 meq PO DAILY 07/29/16 [History] Sennosides [Senna] 8.6 mg PO BID 07/29/16 [History] Aspirin Enteric Coated [Aspirin EC] 81 mg PO DAILY #30 tablet. 08/06/16 [Rx] Atorvastatin [Lipitor] 20 mg PO HS #30 tablet 08/06/16 [Rx] Tamsulosin [Flomax] 0.4 mg PO 1800 #30 capsule 08/06/16 [Rx] Lisinopril [Zestril] 10 mg PO DAILY tablet 09/01/17 [Rx] Metoprolol XL (24 HR) Succ [Toprol Xl] 25 mg PO DAILY tab.er.24h 09/01/17 [Rx] Omeprazole [PriLOSEC] 40 mg PO DAILY capsule. 09/01/17 [Rx] Sertraline [Zoloft] 100 mg PO DAILY tablet 09/01/17 [Rx] Allergies/Adverse Reactions: 3 Allergy/AdvReac Type Severity Reaction Status Date / Time allopurinol Allergy See Verified 03/31/15 14:23 Comments - Respiratory Orders None Smoking Cessation: Smoking cessation has been advised. For more information, call the [place] Tobacco Quit Line at 6-267-BXNK-NOW. - Lab Orders Lab Orders: CBC (2-3 days after discharge to monitor anemia) - Advance Directives Code Status: DNR-Comfort Care - Diet Orders Pureed, Cardiac CERTIFICATION: I certify that the transfer of the above named patient to an Extended Care Facility is necessary for the continuing treatment of the diagnosis listed. The above information is true and accurate reflection of patient's current condition. Confidential - Redisclosure prohibited without a patient's written consent.
[2017-09-01 11:22] VITALS: BP 137/72
== END 2017-09-01 12:41 | DRG 377 ==
LOC: 2ANU 11:04 → EMEROO 11:04 → 2ANU 16:22
PROVIDERS: ADMIT Internal Medicine; ATTEND Internal Medicine
PROC: ENDOEBX (2017-08-30 12:00)